=== PATIENT | male | born 1995 | race Caucasian/White ===

== ENCOUNTER 2023-09-19 08:18 | Inpatient (IN) | payer MEDICAID, SELFPAY ==
[2023-09-19 08:20] VITALS: BP 173/101; PULSE 119; RESP 16; TEMP 36.3; O2SAT 100; BMI 25.7
--- NOTE | 2023-09-19 08:31 | EX.ED.SAOD ---
HPI History of Present Illness Chief Complaint: Substance Abuse Informant: patient Onset/Context/Timing Onset: Yesterday Context: Gradual Onset Timing: Continuous Quality: Shaky Location: Generalized Worsened by: Nothing Relieved by: Nothing Associated Symptoms Associated Symptoms: Negative for vomiting*, diarrhea*, fever*, rash*, seizure, tremor, palpatations, change in mental status, trauma, suicidal ideation or homicidal ideation Narrative Narrative: Patient presents requesting detox from alcohol. Patient states he drinks 1 pint of hard liquor or 8-12 beers per day. Patient states his last drink was yesterday afternoon. Patient states he is starting to feel somewhat shaky but denies any seizures or tremors. Patient states he feels like his heart is beating little faster than normal but denies any palpitations. Patient states he has had some loose stools but denies any diarrhea. Patient denies any nausea or vomiting. Patient denies any fevers or chills. Patient denies any suicidal or homicidal ideations. Patient states he was in a detox program at [facility] in [place] approximately 9 months ago. [facility] Medical History (Updated 09/19/23 @ 09:[address] Hi Stuart DO) Depression Home Medications multivitamin with minerals-folic acid 120 mcg chewable tablet (Adult Multivitamin Gummies) tab PO DAILY 09/19/23 [History Last Taken Unknown] paroxetine HCl 30 mg tablet 30 mg PO DAILY 09/19/23 [History Last Taken 09/18/23] Allergy/AdvReac Type Severity Reaction Status Date / Time hazelnut Allergy Mild Itching Verified 09/19/23 08:22 Surgical History no surgical history no surgical history Social History Smoking Status: Current every day smoker tobacco type: cigarettes ROS ROS ED Constitutional Constitutional ED: Denies chills or fever(s) Eyes Eyes: Denies blurry vision or change in vision ENT ENT ED: Reports rhinorrhea; Denies sore throat Cardiovascular Cardiovascular: Denies chest pain or palpitations Respiratory/Chest Respiratory/Chest: Denies cough or dyspnea Gastrointestinal Gastrointestinal: Denies nausea or vomiting Genitourinary Genitourinary ED: Denies dysuria or hematuria Musculoskeletal Musculoskeletal: Denies back pain or neck pain Integumentary Denies abscess or rash Neurologic Neurologic: Denies headache(s) or weakness Allergic/Immunologic Allergic/Immunologic ED: Denies mouth swelling or urticaria EXAM Physical Exam Const Vital Signs: 09/19/23 08:20 Temperature 97.3 F L Temperature Source Temporal Pulse Rate 119 H Respiratory Rate 16 Blood Pressure 173/101 H Blood Pressure Mean 125 Pulse Ox 100 Oxygen Delivery Method Room Air Positive well nourished and well developed General Appearance ED: well developed and NAD HEENT Reports moist mucous membranes Neck supple and no JVD Chest Wall inspection of chest normal and palpation of chest normal Resp normal respiratory effort and clear to auscultation bilaterally Cardio regular rhythm Rate: tachycardic GI soft to palpation, non-tender and non-distended Neuro oriented x3, CN's II-XII intact bilaterally and no sensory deficits noted Eduarda Coma Scale: document GCS findings Spontaneous Obeys Commands Oriented 15 Sensorium / Orientation: alert Speech: speech normal Motor Exam: strength 5/5 throughout Psych mental status grossly normal and thought process normal MDM MDM MDM Narrative Medical decision making narrative: Medical screening labs will be obtained. CBC will be obtained to assess for leukocytosis and anemia. Comprehensive metabolic profile will be obtained to assess for hepatic function, renal function, and electrolyte abnormality. Lipase will be obtained to assess for pancreatitis. Urinalysis will be obtained to assess for urinary tract infection. Serum alcohol level will be obtained to assess for alcohol intoxication. Urine tox screen will be obtained to assess for substance abuse. Lab Data Lab results narrative: CBC was reviewed and was within normal limits. Comprehensive metabolic profile was reviewed and was within normal limits. Lipase was reviewed and was normal at 55. Urinalysis was reviewed. There is no evidence of urinary tract infection or hematuria. Labs: Laboratory Results - last 24 hr 09/19/23 09/19/23 08:42 08:55 WBC 10.0 RBC 5.03 Hgb 15.3 Hct 43.7 MCV 86.9 MCH 30.4 MCHC 35.0 RDW Std Deviation 41.8 RDW Coeff of Barbara 13.2 Plt Count 344 MPV 9.5 Immature Gran % (Auto) 0.300 Neut % (Auto) 50.9 Lymph % (Auto) 36.4 [place] % (Auto) 9.5 Eos % (Auto) 2.2 Baso % (Auto) 0.7 Absolute Neuts (auto) 5.1 Absolute Lymphs (auto) 3.64 Nucleated RBC % 0 Sodium 138 Potassium 3.4 L Chloride 105 Carbon Dioxide 27.0 Anion Gap 6 BUN 13 Creatinine 1.14 Estim Creat Clear Calc 95.61 Est GFR (MDRD) Af Amer 97 Est GFR (MDRD) Non-Af 81 BUN/Creatinine Ratio 11.4 Glucose 100 Calcium 9.5 Total Bilirubin 0.60 AST 13 L ALT 23 Alkaline Phosphatase 105 Total Protein 8.4 H Albumin 4.2 Globulin 4.2 Albumin/Globulin Ratio 1.0 Lipase 55 Urine Color Yellow Urine Clarity Clear Urine pH 8.0 Ur Specific [place] 1.010 Urine Protein Negative Urine Glucose (UA) Normal Urine Ketones Negative Urine Occult Blood 10 H Urine Nitrite Negative Urine Bilirubin Negative Urine Urobilinogen Normal Ur Leukocyte Esterase Negative Urine RBC 0-5 SEEN Urine WBC 0 SEEN Ur Squamous Epith Cells 0-5 SEEN Urine Bacteria 0 SEEN Urine Mucus 0 SEEN Ur Drug Screen Comment Management Discussion w/another healthcare provider: Hospitalist Treatment and Re-Evaluation Narrative: Patient was given IV fluids. Patient was given a dose of phenobarbital here. Case will be discussed with the hospitalist for admission. He will admit the patient to his service. Patient understood and was agreeable with the plan. All questions were answered. Discharge Plan Triage Chief Complaint: Substance Abuse ED Provider: Hi Stuart Dx/Rx/DC Orders Clinical Impression: Alcohol dependence, Alcohol withdrawal Prescriptions: No Action paroxetine HCl 30 mg tablet 30 mg PO DAILY Patient Comments: TAKE 1 TABLET BY MOUTH EVERY DAY multivit with min-folic acid [Adult Multivitamin Gummies] 120 mcg tablet,chewable PO DAILY Primary Care Provider: Michelle Carias Referrals: Michelle Carias MD [Primary Care Provider] - Disposition Disposition: Acute Care Hospital [facility]
[2023-09-19 08:51] LABS: Absolute Lymphocyte Count 3.64 X10^3/uL (0.83-4.51); Absolute Neutrophil Count 5.1 X10^3/uL (2.0-7.7); Basophil# 0.07 X10^3/uL; Basophil% 0.7 % (0-1); Eosinophil# 0.22 X10^3/uL; Eosinophils% 2.2 % (0-5); Hematocrit 43.7 % (40-54); Hemoglobin 15.3 g/dL (13.0-16.5); Lymphocyte # 3.64 X10^3/ul (0.83-4.51); Lymphocyte % 36.4 % (19-41); Mean Corpuscular Hgb 30.4 pg (27.0-32.0); Mean Corpuscular Volume 86.9 fL (80-94); Mean Platelet Vol. 9.5 fl (6.2-12.0); Monocyte# 0.95 X10^3/uL; Monocyte% 9.5 % (0-10); NRBC Flagged by Analyzer 0 % (0-5); Neutrophil # 5.08 X10^3/uL (2.7-7.7); Neutrophil % 50.9 % (47-70); Platelet Count 344 K/mm3 (150-450); RBC Distribution Width CV 13.2 % (11.6-14.6); RBC Distribution Width SD 41.8 fl (35.1-43.9); Red Blood Count 5.03 M/mm3 (4.6-6.2)
[2023-09-19] MEDS: 0.9% Normal Saline (1000mL) 1,000 ML 1000 ML IV (08:57)
[2023-09-19 09:05] LABS: Bacteria 0 SEEN /hpf (None Seen); Mucous, Urine 0 SEEN /hpf (<or=2+); White Blood Cells 0 SEEN /hpf (0-5)
[2023-09-19 09:08] LABS: Color, Urine Yellow (Yellow); Glucose, Dipstick Normal (Normal); Ketone-Dipstick Negative (Negative); Leukocyte Esterase-Dipstick Negative /ul (Negative); Nitrite-Dipstick Negative (Negative); Occult Blood-Urine 10 /ul (Negative); Protein-Dipstick Negative (Negative); Urine Bilirubin Dipstick Negative (Negative); Urine Clarity Clear (Clear); Urine Urobilinogen Normal (Normal)
[2023-09-19 09:13] LABS: AST(SGOT) 13 U/L (15-37); Alanine Aminotransfer ALT/SGPT 23 U/L (16-61); Albumin, Serum 4.2 g/dL (3.2-5.0); Alkaline Phosphatase 105 U/L (45-117); Anion Gap 6 (5-15); BUN 13 mg/dL (7-18); BUN/Creat Ratio 11.4 RATIO (10-20); Calcium,Total 9.5 mg/dL (8.5-10.1); Chloride 105 mmol/L (98-107); Creatinine, Serum 1.14 mg/dL (0.70-1.30); EST Glomerular Filtration Rate 81 mL/min (>60); Est Glom Filt Rate - Afr Amer 97 mL/min (>60); Estimated Creatinine Clearance 95.61 ml/min; Globulin 4.2 g/dL (2.2-4.2); Glucose 100 mg/dL (74-106); Lipase 55 U/L (13-75); Potassium 3.4 mmol/L (3.5-5.1); Protein, Total 8.4 g/dL (6.4-8.2); Sodium Level 138 mmol/L (136-145)
[2023-09-19 09:17] LABS: Red Blood Cells-Urine 0-5 SEEN /hpf (0-5); Squamous Epithelial Cells - UA 0-5 SEEN /hpf (0-5)
[2023-09-19 09:20] VITALS: BP 126/78; PULSE 99; RESP 14; TEMP 36.4; O2SAT 99
--- NOTE | 2023-09-19 09:21 | PCM.HP.STD ---
HPI - General General Date of Admission: 09/19/23 Date of Service: 09/19/23 Chief Complaint: Tremulous HPI Narrative MARY MEDINA, is a 28 M who presents who presents with tremulousness. Patient admitted to daily use of alcohol. His last drink was a day prior to coming in. He presented to the emergency department expressing the desire to undergo medical stabilization. An assessment of acute alcohol withdrawal was made patient admitted to regular nursing floor for subsequent manage [facility] Medical History (Updated 09/19/23 @ 10:27 by Adrian Guillen) Alcohol abuse Anxiety Depression Substance abuse Home Medications multivitamin with minerals-folic acid 120 mcg chewable tablet (Adult Multivitamin Gummies) 1 tab PO DAILY HEALTH MAINTENANCE 09/19/23 [History Last Taken Unknown] paroxetine HCl 30 mg tablet 30 mg PO DAILY DEPRESSION 09/19/23 [History Last Taken 09/18/23] Allergy/AdvReac Type Severity Reaction Status Date / Time hazelnut Allergy Mild Itching Verified 09/19/23 08:22 Surgical History no surgical history Social History Smoking Status: Current every day smoker tobacco type: cigarettes and e-cigarettes ROS ROS Narrative GENERAL: denies fever, chills, night sweats, weight loss, anorexia HEENT: denies headache, sinus congestion, or drainage, dysphagia RESPIRATORY: denies cough, sputum production, shortness of breath, CARDIAC: denies chest pain, palpitations, orthopnea, PND GASTROINTESTINAL: denies abdominal pain, nausea, vomiting, melena, GENITOURINARY: denies dysuria, urgency, frequency, heamaturia EXTREMITY: denies swelling MUSCULOSKELETAL: denies current joint pain or tenderness NEUROLOGIC: denies focal numbness, weakness, tingling HEMATOLOGIC: denies easy bruising and/or hemorrhage INTEGUMENT: denies rashes PSYCHIATRIC: denies suicidal or homicidal ideation Vital Signs Vital Signs Vital Signs: 09/19/23 08:20 Temperature 97.3 F L Temperature Source Temporal Pulse Rate 119 H Respiratory Rate 16 Blood Pressure 173/101 H Blood Pressure Mean 125 Pulse Ox 100 Oxygen Delivery Method Room Air Weight Weight: 78.925 kg Body Mass Index (BMI) 25.7 Physical Exam Narrative GENERAL: cooperative but tremulous at rest HEENT: Atraumatic; normocephalic EYES; Anicteric, Normal Conjunctiva NECK; supple, normal thyroid, RESPIRATORY: Diminished to auscultation CARDIOVASCULAR: Regular S1 S2, GI: soft, normoactive bowel sounds, : No Renal angle tenderness; EXTREMITIES: No edema, no clubbing, MUSCULOSKELETAL: no muscle wasting NEURO: Awake; no lateralizing signs. SKIN: No Rash PSYCH; Flat affect Results Lab / Micro Data 09/19/23 08:42 09/19/23 08:42 Labs: Laboratory Results - last 24 hr 09/19/23 08:42: WBC 10.0, RBC 5.03, Hgb 15.3, Hct 43.7, MCV 86.9, MCH 30.4, MCHC 35.0, RDW Std Deviation 41.8, RDW Coeff of Barbara 13.2, Plt Count 344, MPV 9.5, Immature Gran % (Auto) 0.300, Neut % (Auto) 50.9, Lymph % (Auto) 36.4, [place] % (Auto) 9.5, Eos % (Auto) 2.2, Baso % (Auto) 0.7, Absolute Neuts (auto) 5.1, Absolute Lymphs (auto) 3.64, Nucleated RBC % 0, Sodium 138, Potassium 3.4 L, Chloride 105, Carbon Dioxide 27.0, Anion Gap 6, BUN 13, Creatinine 1.14, Estim Creat Clear Calc 95.61, Est GFR (MDRD) Af Amer 97, Est GFR (MDRD) Non-Af 81, BUN/Creatinine Ratio 11.4, Glucose 100, Calcium 9.5, Total Bilirubin 0.60, AST 13 L, ALT 23, Alkaline Phosphatase 105, Total Protein 8.4 H, Albumin 4.2, Globulin 4.2, Albumin/Globulin Ratio 1.0, Lipase 55 09/19/23 08:55: Urine Color Yellow, Urine Clarity Clear, Urine pH 8.0, Ur Specific [place] 1.010, Urine Protein Negative, Urine Glucose (UA) Normal, Urine Ketones Negative, Urine Occult Blood 10 H, Urine Nitrite Negative, Urine Bilirubin Negative, Urine Urobilinogen Normal, Ur Leukocyte Esterase Negative, Urine RBC 0-5 SEEN, Urine WBC 0 SEEN, Ur Squamous Epith Cells 0-5 SEEN, Urine Bacteria 0 SEEN, Urine Mucus 0 SEEN, Ur Drug Screen Comment Assessment & Plan Assessment/Plan (1) Alcohol withdrawal: PLAN: Plan Patient is a 28-year-old gentleman with history of chronic alcohol dependence presented with acute alcohol withdrawal 1. Acute alcohol withdrawal -patient has been admitted to regular nursing floor for medical stabilization using phenobarb taper in addition to adjuvant treatment for his symptoms 2. Chronic alcohol dependence counseled on cessation 3. Depression ? Patient is on SSRI with Paxil did continue 4. Tobacco dependence - Counseled on cessation, offered nicotine patch for tobacco cravings 5. DVT prophylaxis ? Low risk with encouraging ambulation Time spent in the patient's overall evaluation,decision-making process, review of diagnostic data, adjustment of management, discussion with other providers, nursing nursing and ancillary staff involved in patient's care documentation, 55 Minutes Charges/Coding Visit Charges Inpatient E&M: 94066 Init Hosp L2
[2023-09-19] MEDS: Phenobarbital 32.4 MG Tablet 64.7999999999999972 MG PO ×5 (09:26→23:17)
[2023-09-19 09:28] LABS: Amphetamine Urine VISTA NEGATIVE (<1000 ng/mL); Barbiturate Urine VISTA NEGATIVE (< 200 ng/mL); Benzodiazepine Urine VISTA NEGATIVE (< 200 ng/mL); Cocaine Urine VISTA NEGATIVE (< 300 ng/mL); Ecstacy Urine VISTA NEGATIVE (< 500 ng/mL); Methadone Urine VISTA NEGATIVE (< 300 ng/mL); PCP Urine VISTA NEGATIVE (< 25 ng/mL); THC Urine VISTA POSITIVE (< 50 ng/mL); Vista UDS pH Range 8
[2023-09-19 09:33] LABS: Alcohol, Blood (Medical)-Serum < 3.0 mg/dL
[2023-09-19 10:19] VITALS: BMI 25.5
[2023-09-19 10:30] VITALS: BP 137/98; PULSE 85; RESP 16; TEMP 36.4; O2SAT 98
[2023-09-19] MEDS: Lactated Ringers 1,000 ML 125 ML IV (11:15)
[2023-09-19] MEDS: hydrOXYzine PAM 25 MG Capsule 50 MG PO ×2 (11:15→23:17)
[2023-09-19] MEDS: 0.9% Saline Lock 10 ML Syringe IV (11:15)
[2023-09-19] MEDS: PARoxetine 10 MG Tablet 30 MG PO (11:15)
--- NOTE | 2023-09-19 12:22 | ADDICTION ---
This commercial real estate underwriter met with PT to conduct ASAM, MSE, AUDIT assessments and to plan for d/c. PT A+Ox4 and participated actively. All assessments completed and placed in PT's chart. PT plans to f/u with inpatient residential treatment. TW is currently looking for placement. PT did not indicate a need for transportation post d/c from [facility].
[2023-09-19 14:00] VITALS: BP 125/76; PULSE 89; RESP 16; O2SAT 96
--- NOTE | 2023-09-19 14:39 | CHAPLAIN ---
Type of Pastoral Visit _x__ Initial Visit ___ Follow-up Visit ___ On-call Visit ___ General Patient Visit ___ Spiritual Assessment ___ Family Conference ___ Bereavement ___ Rapid Response ___ Code Blue ___ Other (describe below) Pastoral Care Referral From _x__ Patient ___ Family ___ Nurse ___ Physician ___ Flat Surfacer Jewel ___ Overlock Sleeve Setter ___ Other (describe below) Sacrament/Intervention _x__ Active listening ___ Anointing ___ Quaker ___ Bereavement ___ Communion ___ Diana exploration ___ _x__ Life review _x__ Prayer ___ Reconciliation ___ Sacrament of Sick _x__ Supportive presence ___ Wedding ___ Other (describe below) Pastoral Comments patient is awake and sits up in bed to talk; pt has been met before by this tube blower; pt is offered support and someone to talk with or sit with; pt states that he is not much for conversation and welcomes this tube blower to stay in room and take time with him; pt is able to answer many questions about his life, addiction to alcohol, and needed help; pt admits that he is not much for conversation but is polite and welcomes presence and time given; pt is able to state what he believes he needs going forward for overcoming addiction and living a more productive life; affirmation and offer of future support given
[2023-09-19] MEDS: Nicotine Polacrilex 2 MG GUM PO (15:21)
[2023-09-19 23:15] VITALS: BP 121/78; PULSE 93; RESP 16; TEMP 36.8; O2SAT 99
[2023-09-20 02:50] VITALS: BP 133/89; PULSE 73; RESP 16; TEMP 36.6; O2SAT 98
[2023-09-20] MEDS: Phenobarbital 32.4 MG Tablet 64.7999999999999972 MG PO ×6 (02:50→21:37)
[2023-09-20] MEDS: Hydrocortisone 2.5% Crm 1 APPLIC TOPICAL ×2 (03:01→13:13)
[2023-09-20] MEDS: hydrOXYzine PAM 25 MG Capsule 50 MG PO (06:30)
[2023-09-20 07:52] VITALS: BP 121/83; PULSE 68; RESP 18; TEMP 36.6; O2SAT 100
[2023-09-20] MEDS: Thiamine Hydrochloride 100 MG Tablet PO (07:55)
[2023-09-20] MEDS: Folic Acid 1 MG Tablet PO (07:55)
--- NOTE | 2023-09-20 08:05 | PCM.PN.HOSP ---
Reason for Visit Reason for Visit: Diagnoses Alcohol use, unspecified with withdrawal, unspecified (09/19/23) Subjective Subjective Patient is a 28-year-old gentleman admitted with acute alcohol withdrawal admitted to regular nursing floor where patient is currently being managed Objective Data Objective Data Vital Signs: Vital Signs Temp Pulse Resp BP Pulse Ox O2 Del Method 97.8 F 68 18 121/83 H 100 Room Air 09/20/23 07:52 09/20/23 07:52 09/20/23 07:52 09/20/23 07:52 09/20/23 07:52 09/20/23 07:52 Oxygen Delivery Method Room Air Weight: 78.471 kg Body Mass Index (BMI) 25.5 Intake & Output: Intake and Output for Last 24 Hours 09/18/23 09/19/23 09/20/23 23:59 23:59 23:59 Intake Total 2860.42 / 2860.42 Balance 2860.42 / 2860.42 Lab / Micro Data 09/19/23 08:42 09/19/23 08:42 Labs: Laboratory Results - last 24 hr 09/19/23 08:42: WBC 10.0, RBC 5.03, Hgb 15.3, Hct 43.7, MCV 86.9, MCH 30.4, MCHC 35.0, RDW Std Deviation 41.8, RDW Coeff of Barbara 13.2, Plt Count 344, MPV 9.5, Immature Gran % (Auto) 0.300, Neut % (Auto) 50.9, Lymph % (Auto) 36.4, [place] % (Auto) 9.5, Eos % (Auto) 2.2, Baso % (Auto) 0.7, Absolute Neuts (auto) 5.1, Absolute Lymphs (auto) 3.64, Nucleated RBC % 0, Sodium 138, Potassium 3.4 L, Chloride 105, Carbon Dioxide 27.0, Anion Gap 6, BUN 13, Creatinine 1.14, Estim Creat Clear Calc 95.61, Est GFR (MDRD) Af Amer 97, Est GFR (MDRD) Non-Af 81, BUN/Creatinine Ratio 11.4, Glucose 100, Calcium 9.5, Total Bilirubin 0.60, AST 13 L, ALT 23, Alkaline Phosphatase 105, Total Protein 8.4 H, Albumin 4.2, Globulin 4.2, Albumin/Globulin Ratio 1.0, Lipase 55, Ethyl Alcohol < 3.0 09/19/23 08:55: Urine Color Yellow, Urine Clarity Clear, Urine pH 8.0, Ur Specific [place] 1.010, Urine Protein Negative, Urine Glucose (UA) Normal, Urine Ketones Negative, Urine Occult Blood 10 H, Urine Nitrite Negative, Urine Bilirubin Negative, Urine Urobilinogen Normal, Ur Leukocyte Esterase Negative, Urine RBC 0-5 SEEN, Urine WBC 0 SEEN, Ur Squamous Epith Cells 0-5 SEEN, Urine Bacteria 0 SEEN, Urine Mucus 0 SEEN, Urine Opiates Screen NEGATIVE, Urine Methadone Screen NEGATIVE, Ur Barbiturates Screen NEGATIVE, Ur Phencyclidine Scrn NEGATIVE, Ur Amphetamines Screen NEGATIVE, MDMA (Ecstasy) Screen NEGATIVE, U Benzodiazepines Scrn NEGATIVE, Urine Cocaine Screen NEGATIVE, U Cannabinoids Screen POSITIVE H, Ur Drug Screen Comment Physical Exam Narrative GENERAL: cooperative but tremulous at rest HEENT: Atraumatic; normocephalic EYES; Anicteric, Normal Conjunctiva NECK; supple, normal thyroid, RESPIRATORY: Diminished to auscultation CARDIOVASCULAR: Regular S1 S2, GI: soft, normoactive bowel sounds, : No Renal angle tenderness; EXTREMITIES: No edema, no clubbing, MUSCULOSKELETAL: no muscle wasting NEURO: Awake; no lateralizing signs. SKIN: No Rash PSYCH; Flat affect Assessment & Plan Assessment/Plan (1) Alcohol withdrawal: PLAN: Plan Patient is a 28-year-old gentleman with history of chronic alcohol dependence presented with acute alcohol withdrawal 1. Acute alcohol withdrawal -patient has been admitted to regular nursing floor for medical stabilization using phenobarb taper in addition to adjuvant treatment for his symptoms ? 09/20/2023; patient has tolerated the phenobarb taper well so 2. Chronic alcohol dependence ? Counseled on cessation 3. Depression ? Patient is on SSRI with Paxil did continue 4. Tobacco dependence - Counseled on cessation, offered nicotine patch for tobacco cravings 5. DVT prophylaxis ? Low risk with encouraging ambulation Time spent in the patient's overall evaluation,decision-making process, review of diagnostic data, adjustment of management, discussion with other providers, nursing nursing and ancillary staff involved in patient's care documentation, 35 Minutes Charges/Coding Visit Charges Inpatient E&M: 60872 Subs Hosp L2
[2023-09-20] MEDS: PARoxetine 10 MG Tablet 30 MG PO (10:07)
[2023-09-20] MEDS: Nicotine Polacrilex 2 MG GUM PO ×2 (10:08→13:13)
[2023-09-20] MEDS: Influenza Virus Vac Quad 23-24 60 MCG/0.5 ML SYRINGE IM (10:08)
[2023-09-20 12:07] VITALS: BP 138/86; PULSE 77; RESP 18; TEMP 37.1; O2SAT 98
[2023-09-20 16:42] VITALS: BP 127/86; PULSE 60; RESP 18; TEMP 37; O2SAT 100
[2023-09-20 21:47] VITALS: BP 118/77; PULSE 81; RESP 16; TEMP 36.9; O2SAT 96
[2023-09-21] MEDS: Phenobarbital 32.4 MG Tablet 64.7999999999999972 MG PO ×2 (02:44→06:35)
[2023-09-21 03:08] VITALS: BP 114/78; PULSE 68; RESP 16; TEMP 36.6; O2SAT 99
[2023-09-21 07:54] VITALS: BP 131/83; PULSE 78; RESP 18; TEMP 36.6; O2SAT 98
[2023-09-21] MEDS: Folic Acid 1 MG Tablet PO (07:54)
[2023-09-21] MEDS: Thiamine Hydrochloride 100 MG Tablet PO (07:55)
--- NOTE | 2023-09-21 08:48 | PN.HOSP_ITS ---
Reason for Visit Reason for Visit: Diagnoses Alcohol use, unspecified with withdrawal, unspecified (09/19/23) Subjective Subjective Patient seen had a relatively uneventful night. Symptoms appear well- controlled. Plan for patient to be transferred to residential facility on discharge. Do anticipate discharge on 09/22/2023 Objective Data Objective Data Vital Signs: Vital Signs Temp Pulse Resp BP Pulse Ox O2 Del Method 97.8 F 78 18 131/83 H 98 Room Air 09/21/23 07:54 09/21/23 07:54 09/21/23 07:54 09/21/23 07:54 09/21/23 07:54 09/21/23 07:54 Oxygen Delivery Method Room Air Weight: 78.471 kg Body Mass Index (BMI) 25.5 Intake & Output: Intake and Output for Last 24 Hours 09/19/23 09/20/23 09/21/23 23:59 23:59 23:59 Intake Total 2860.42 / 2860.42 Balance 2860.42 / 2860.42 Lab / Micro Data 09/19/23 08:42 09/19/23 08:42 Physical Exam Narrative GENERAL: cooperative but tremulous at rest HEENT: Atraumatic; normocephalic EYES; Anicteric, Normal Conjunctiva NECK; supple, normal thyroid, RESPIRATORY: Diminished to auscultation CARDIOVASCULAR: Regular S1 S2, GI: soft, normoactive bowel sounds, : No Renal angle tenderness; EXTREMITIES: No edema, no clubbing, MUSCULOSKELETAL: no muscle wasting NEURO: Awake; no lateralizing signs. SKIN: No Rash PSYCH; Flat affect Assessment & Plan Assessment/Plan (1) Alcohol withdrawal: PLAN: Plan Patient is a 28-year-old gentleman with history of chronic alcohol dependence presented with acute alcohol withdrawal 1. Acute alcohol withdrawal -patient has been admitted to regular nursing floor for medical stabilization using phenobarb taper in addition to adjuvant treatment for his symptoms ? 09/20/2023; patient has tolerated the phenobarb taper well so ? 09/21/2023;Patient seen had a relatively uneventful night. Symptoms appear well-controlled. Plan for patient to be transferred to residential facility on discharge. Do anticipate discharge on 09/22/2023 2. Chronic alcohol dependence ? Counseled on cessation 3. Depression ? Patient is on SSRI with Paxil did continue 4. Tobacco dependence - Counseled on cessation, offered nicotine patch for tobacco cravings 5. DVT prophylaxis ? Low risk with encouraging ambulation Time spent in the patient's overall evaluation,decision-making process, review of diagnostic data, adjustment of management, discussion with other providers, nursing nursing and ancillary staff involved in patient's care documentation, 35 Minutes Charges/Coding Visit Charges Inpatient E&M: 91727 Subs Hosp L2
--- NOTE | 2023-09-21 08:59 | PCM.DC.SUM ---
Providers Date of Admission: 09/19/23 Date of Discharge: 09/21/23 Primary Care Physician: Dr. Michelle Carias MD Reason For Visit: ALCOHOL WITHDRAWAL Diagnosis Discharge Diagnosis (1) Alcohol withdrawal: Status: Acute Code(s): F10.939 - Alcohol use, unspecified with withdrawal, unspecified Plan Patient is a 28-year-old gentleman with history of chronic alcohol dependence presented with acute alcohol withdrawal 1. Acute alcohol withdrawal -patient has been admitted to regular nursing floor for medical stabilization using phenobarb taper in addition to adjuvant treatment for his symptoms ? 09/20/2023; patient has tolerated the phenobarb taper well so ? 09/21/2023;Patient seen had a relatively uneventful night. Symptoms appear well-controlled. Plan for patient to be transferred to residential facility on discharge. 2. Chronic alcohol dependence ? Counseled on cessation 3. Depression ? Patient is on SSRI with Paxil did continue 4. Tobacco dependence - Counseled on cessation, offered nicotine patch for tobacco cravings 5. DVT prophylaxis ? Low risk with encouraging ambulation Time spent in the patient's overall evaluation,decision-making process, review of diagnostic data, adjustment of management, discussion with other providers, nursing nursing and ancillary staff involved in patient's care documentation, 35 Minutes Medications at Discharge Home Medications multivitamin with minerals-folic acid 120 mcg chewable tablet (Adult Multivitamin Gummies) 1 tab PO DAILY HEALTH MAINTENANCE 09/19/23 paroxetine HCl 30 mg tablet 30 mg PO DAILY DEPRESSION 09/19/23 Hospital Course Summary of Care Provided Minutes Spent on Discharge: 35 Physical Exam Narrative GENERAL: cooperative HEENT: Atraumatic; normocephalic EYES; Anicteric, Normal Conjunctiva NECK; supple, normal thyroid, RESPIRATORY: Diminished to auscultation CARDIOVASCULAR: Regular S1 S2, GI: soft, normoactive bowel sounds, : No Renal angle tenderness; EXTREMITIES: No edema, no clubbing, MUSCULOSKELETAL: no muscle wasting NEURO: Awake; no lateralizing signs. SKIN: No Rash PSYCH; Flat affect Weight / BMI Weight Weight: 78.471 kg Body Mass Index (BMI) 25.5 ABG / Lab / Microbiology Data 09/19/23 08:42 09/19/23 08:42 D/C Instructions Discharge Diet: No restrictions Discharge Activity: Return to Normal Activity Call your doctor if you observe: Fever of 101 or Higher, Shortness of breath, Fainting spells and Chest pain Meaningful Use Info Meaningful Use Diagnoses (Choose all that apply): None applicable Discharge Plan Admission Admit Date/Time: 09/19/23 09:18 Attending Provider: Lamberto March Primary Care Provider: Michelle Carias Discharge Orders/Prescriptions Prescriptions: Continued paroxetine HCl 30 mg tablet 30 mg PO DAILY multivit with min-folic acid [Adult Multivitamin Gummies] 120 mcg tablet,chewable 1 tab PO DAILY Referrals / Follow Up: Michelle Carias MD [Primary Care Provider] - Disposition Disposition (needs filled in before D/C Order can be placed): Inpatient Rehab Unit/Facility Charges/Coding Visit Charges Inpatient E&M: 40285 Disch Hosp >30min
[2023-09-21] MEDS: PARoxetine 10 MG Tablet 30 MG PO (10:01)
--- NOTE | 2023-09-21 10:55 | PHA.DC.MR.R ---
Pharmacy [place] Med Reconciliation Pharmacy Service has performed discharge medication reconciliation for this patient. The patient's discharge medication list was reviewed for discrepancies and discrepancies were resolved. Medications at Discharge Home Medications multivitamin with minerals-folic acid 120 mcg chewable tablet (Adult Multivitamin Gummies) 1 tab PO DAILY HEALTH MAINTENANCE 09/19/23 paroxetine HCl 30 mg tablet 30 mg PO DAILY DEPRESSION 09/19/23
[2023-09-21 11:21] VITALS: BP 135/81; PULSE 96; RESP 18; TEMP 36.8; O2SAT 97
== END 2023-09-21 11:57 | DRG 775 ==
LOC: ED 09:19 → MS3 09:45
PROVIDERS: Admitting Provider Internal Medicine; Emergency Provider Emergency Medicine; PCP Internal Medicine; Visit Provider Internal Medicine
DX: F10.239 Alcohol dependence with withdrawal, unspecified (principal); F17.210 Nicotine dependence, cigarettes, uncomplicated; F32.A Depression, unspecified; F41.9 Anxiety disorder, unspecified; F17.290 Nicotine dependence, other tobacco product, uncomplicated; Z79.899 Other long term (current) drug therapy; Y90.0 Blood alcohol level of less than 20 mg/100 ml
CPT/HCPCS: 80053; 80307; 80320; 81001; 83690; 85025; 99284; J7030; J7120; 90686; A4216; G0480

== ENCOUNTER 2024-03-06 08:00 | Outpatient (RCR) | payer MEDICAID, SELFPAY ==
--- NOTE | 2024-03-06 10:10 | BH.SGPN.GN ---
Behaviors/Verbalizations/Mental Status: [] Eye contact is fair. Motor activity is appropriate. Appearance is casual. Speech is Appropriate. Mood is anxious. Affect is constricted. Thoughts are linear and logical. No evidence of psychosis. Client Response/Progress/Benefit: [] Pt an active participant in group discussions. Participated during interactive discussion on defining conflict (internal/external) and possible benefits to conflict. Attentive during psychoeducation on conflict styles (Avoidant, Accommodating, Competing, Cooperative) and engaged during interactive discussion in which peers identified the benefits and consequences to each conflict style. Pt identified their primary conflict style as avoidant. Stated negative consequence from avoidant is doesn't deal with the actual problem. Benefited from increased awareness of the impact of conflict styles in mental health. Will continue in IOP tx to prevent decompensation, decrease anxiety, and increase healthy coping skills.
--- NOTE | 2024-03-06 11:10 | BH.SGPN.GN ---
Behaviors/Verbalizations/Mental Status: [] Eye contact is fair. Motor activity is appropriate. Appearance is casual. Speech is Appropriate. Mood is anxious. Affect is congruent. Thoughts are linear and logical. No evidence of psychosis. Client Response/Progress/Benefit: [] Pt was an active participant in group discussions and activity. Engaged with peers in activity and identifying healthy ways to approach each conflict scenario. Group discussed various conflict resolution skills that can be useful in addressing conflict outside of IOP. Benefited from practicing and learning conflict resolution skills during group activity. Able to identify areas pt wants to work on to improve how pt manages conflict both internally and externally. Expressed wanting to work on using assertive communication when addressing external conflict. Will continue in IOP to increase use of healthy coping skills, challenge negative/distorted thoughts, and prevent decompensation.
--- NOTE | 2024-03-06 11:54 | BH.MDN ---
Multi-Disciplinary Note Note 60-min Individual: Time Started:: 09:00 Date: 03/06/24 Purpose of session/treatment goals addressed:: To gather information on pt's current stressors, symptoms, triggers, history, and tx goals. Another goal was to discuss the importance of maintaining sobriety throughout mental health tx. Eye Contact:: Good Motor Activity:: Appropriate Appearance:: Casual Speech:: Appropriate Mood:: Anxious and Depressed Affect:: Congruent Thoughts:: Linear, Logical and No evidence of hallucinations/delusions noted Staff Interventions:: motivational interviewing, CBT techniques, rapport building, strengths perspective, treatment planning, completed risk assessment / safety planning and goal setting Client Response:: Pt responded well to session, open to meeting with therapist. Pt reported that he self-referred to the IOP program due to sx of depression, irritability, and anxiety worsening to the point of an interrupted suicide attempt ~ 2 weeks ago. Disclosed a hx of polysubstance abuse and has recently been self-medicating with alcohol. Pt was intoxicated at the time of the interrupted attempt and became angry and irrational when his sister refused to take him to get more alcohol after pt consumed all he had in the house. Pt then threatened to harm himself with his father?s guns and the police were contacted. Denies any legal charges or hospitalization as a result. Denies any homicidal ideation at the time nor thoughts of harming anyone else. Reports his father removed all weapons from the home following the incident. Denies active suicidal ideation since but does endorse chronic passive thoughts of . Shared he has had passive suicidal ideation since age 15 which is when he also began self-medicating with alcohol, narcotics, meth and marijuana. Reports he has been sober from everything except alcohol and marijuana since 2020. Pt reports a desire to stop relying on alcohol and marijuana to cope and learn healthier alternatives for managing his emotions and stressors. Currently reports he drinks 2x/month and ?binges? 6-10 cans of malt liquor during those times. Marijuana use is several times a week. Pt was admitted to [facility] in September following detox at [facility]. Reports this was not as helpful as he had hoped. Additionally, began the substance use IOP program through [facility] in November of this year but discontinued treatment after 3 weeks. Endorses increased motivation to maintain sobriety now and is open to medication assistance for cravings. Receptive of psychoeducation on the importance of maintaining sobriety while in mental health treatment and the potential barriers to progress is unable to do so. Pt reports understanding. Discussed tx hx and background which is completed in detail in pt psychosocial assessment. Pt reports tx goals as improving mood stability and ability to manage his anger, as well as improving his sense of self-worth and motivation. Risks/Concerns:: Pt denies any active SI, plan, or intent. Denies access to lethal means. Reports willingness to maintain sobriety while in IOP tx. Progress Toward Goals/Plan:: Pt first arnold of IOP tx therefore limited progress to note. Pt endorses hopelessness and irritability that he would like to work on better managing. Pt shared that he has knowledge about coping skills from prior mental health and substance use treatment, but he struggles with applying the skills. Will continue IOP tx to prevent decompensation, improve distress tolerance, and promote mood stability. Time Stopped:: 09:55
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
--- NOTE | 2024-03-06 12:20 | BH.COMM ---
Communication Note Communication with Client Communication Note: Met with pt to complete initial paperwork and administer the C-SSRS screening and risk assessment since last visit. Per C-SSRS risk assessment, pt's risk is considered high due to recent interrupted suicide attempt via firearm while intoxicated. Pt was interrupted by police who were called by his sister. Pt no longer has access to fire arms or other lethal weapons as his father has removed all items from the home. Pt has hx of suicidal thoughts with ideas. Hx of one prior attempt via overdose on medication while intoxicated in 2021. This resulted in hospitalization at [facility]. Pt is open to sobriety and returning to . Pt currently denies active suicidal thoughts, plan, or intention to date. Pt feels able to maintain safety. Therapist provided counseling on access to lethal means. Pt has no access to weapons. Discussed case with Dr. Ruiz and pt will be admitted to [facility] tx with a diagnosis of Major Depressive Disorder, recurrent, severe w/out psychosis. (F33.2)
--- NOTE | 2024-03-07 11:15 | BH.SGPN.GN ---
Behaviors/Verbalizations/Mental Status: [] Eye contact is good. Motor activity is appropriate. Appearance is casual. Speech is Appropriate. Mood is depressed. Affect is flat. Thoughts are linear and logical. No evidence of psychosis. Client Response/Progress/Benefit: [] Pt responded well to session AEB listening attentively to peers, providing some input, as well as taking notes throughout. Pt contributed throughout psychoeducation on different boundary setting styles. Participated in group discussion brainstorming various strategies for improving healthy boundary settings. Pt reported wanting to work on continuing to come to IOP as this is vulnerable for pt. ?Seemed to benefit from increased awareness of how different boundary styles can impact mental health. Will continue IOP tx to prevent use of unhealthy coping skills, increase support, and prevent decompensation. Narrative Note: []
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
--- NOTE | 2024-03-07 12:27 | BH.DR.ITP ---
Initial Treatment Plan Patient Information Visit Information: ADMISSION DATE: EXPECTED LOS: 4-6 weeks Problems/Symptoms Problem #1:: Depression Symptom:: Sadness, hopelessness, irritability, low energy, decreased concentration, guilt, passive thoughts of , chronic suicidal ideation Problem #2:: Anxiety Symptom:: Worry, rumination, panic attacks, hypervigilance, avoidance
--- NOTE | 2024-03-09 09:05 | BH.SGPN.GN ---
Behaviors/Verbalizations/Mental Status: [] Pt alert and oriented, neatly dressed and groomed. Eye contact fair. Motor activity appropriate. Speech within normal limits. Affect flat. mood depressed. Thoughts linear, logical, no signs of hallucinations or delusions. Reviewed pt?s symptom tracker, no risk for suicidal ideation, plan, or intent 03/09/24 Client Response/Progress/Benefit: []Pt responded well to session, attentive and engaged. Pt reports feeling unsure, I can't pin down my emotion today. Pt acknowledged that coming to IOP has been helpful, but it also takes a toll on his energy. Pt stated wins today as completing his first week, getting on new medications, and not drinking all week. Pt's stressor is sticking with all of this. Pt appeared to benefit from reflecting on application of coping skills and connecting with peers. Pt will continue IOP tx to prevent decompensation, improve daily functioning, and increase distress tolerance skills. Narrative Note: []
--- NOTE | 2024-03-09 10:15 | BH.SGPN.GN ---
Behaviors/Verbalizations/Mental Status: [] Eye contact is good. Motor activity is appropriate. Appearance is casual. Speech is Appropriate. Mood is depressed. Affect is congruent. Thoughts are linear and logical. No evidence of psychosis. Client Response/Progress/Benefit: [] Attentive and engaged throughout the group discussions. Attentive during psychoeducation on the 4 communication styles (Passive, Passive-Aggressive, Aggressive, and Assertive) and the obstacles to effective communication. Attentive during interactive discussion on the benefits of communicating effectively, as well as the benefits and disadvantages to the different communication styles. Reports connecting most with passive and assertive styles. Benefited from increased understanding of communication styles and how these can impact effective communication. Will continue in IOP to prevent decompensation, increase healthy coping, and improve functioning. Narrative Note: []
--- NOTE | 2024-03-09 11:15 | BH.SGPN.GN ---
Behaviors/Verbalizations/Mental Status: []Pt alert and oriented, casually dressed. Eye contact good. Motor activity appropriate. Speech within normal limits. Affect congruent, mood depressed and anxious. Thoughts linear, logical, no signs of hallucinations or delusions. Client Response/Progress/Benefit: [] Pt responded well to session AEB Pt listening attentively to others and providing input during group discussion on the pay offs and costs of the different communication styles. Pt able to connect how current communication style impacts mental health. Connected with peers? comments about importance of using assertive communication. Pt did well being assertive in the group activity and worked with group to identify potential skills for improving communication skills. Pt seemed to benefit from increasing awareness of healthy strategies to improve communication and identified wanting to work on improving his ability to better express himself. Will continue IOP tx to prevent decompensation, gain distress tolerance skills, and improve daily functioning. Narrative Note: []
== END 2024-03-11 23:59 ==
LOC: BHIOP 08:00
PROVIDERS: PCP Internal Medicine; Referring Provider Psychiatry & Neurology Psychiatry; Visit Provider Psychiatry & Neurology Psychiatry
DX: F33.2 Major depressive disorder, recurrent severe without psychotic features (principal)
CPT/HCPCS: 90792; H2012; H2020; S9480; 90837

== ENCOUNTER 2024-03-12 07:16 | Outpatient (RCR) | payer MEDICAID, SELFPAY ==
--- NOTE | 2024-03-12 09:00 | BH.SGPN.GN ---
Behaviors/Verbalizations/Mental Status: [] Eye contact is good. Motor activity is appropriate. Appearance is casual. Speech is Appropriate. Mood is depressed. Affect is flat. Thoughts are linear and logical. No evidence of psychosis. Reviewed daily check in sheet and no reports of suicidal ideations or intent. Client Response/Progress/Benefit: [] Pt participated when prompted. Attentive. Daily symptom tracker notes 3/5 for anxiety and 2/5 for depression. Shared with the group that he has had extended sobriety and while it was overwhelming at first he reports it's getting better. He has been engaged in completing tasks and trying to stay distracted and engaged. Stressor is my brain and he elaborated on anxiety, depression, urges to drink, etc. Overall feels blah but neutral today. Limited progress noted. Beneifted from group support, encouragment, and feedback. Will continue in IOP to prevent decompensation, stabilize mood, and improve functioning. Narrative Note: []
--- NOTE | 2024-03-12 10:10 | BH.SGPN.GN ---
Behaviors/Verbalizations/Mental Status: [] Pt alert and oriented, appropriate grooming/appearance. Eye contact good. Motor activity appropriate. Speech within normal limits. Affect congruent, mood euthymic. Thoughts linear, logical, no signs of hallucinations or delusions. Client Response/Progress/Benefit: [] Pt was an active participant in group discussions. Attentive during psychoeducation. Contributed during interactive discussions in which peers attempted to define crisis. Group identified examples of potential crisis. Group also worked together to identify unhealthy responses to crisis which included lashing out, isolation, self-harm, substance abuse, and sleep disturbances. Pt identified personal warning signs as isolating, racing thoughts and substance use. Benefited from increased understanding of crisis and awareness of personal responses to crisis. Pt will continue IOP tx to increasing functioinng and prevent decompensation. Narrative Note: []
--- NOTE | 2024-03-12 11:15 | BH.MDN ---
Multi-Disciplinary Note Note 45-min Individual: Time Started:: 11:15 Date: 03/12/24 Purpose of session/treatment goals addressed:: Utilized sessions to identify current symptoms and progress in IOP. Worked with pt to identify treatment plan goals for IOP Eye Contact:: Good Motor Activity:: Appropriate Appearance:: Casual Speech:: Appropriate Mood:: Anxious and Depressed Affect:: Congruent Thoughts:: Linear, Logical and No evidence of hallucinations/delusions noted Staff Interventions:: rapport building and treatment planning Client Response:: When asked about his first week in IOP pt states I like it. Shared that he has been in previous IOPs for substance abuse and this one is much calmer. Pt reports his goals for IOP are to rewire my brain and get rid of bad habits. Unhealthy habits identified as poor sleep routine, daily cannabis use, and unhealthy eating. Other goals include getting better control of myself. Elaborated stating that he is hoping to enhance his skills to manage his depression, irritability, and anxiety. Has struggled with sobriety for several years. Currently sober a week. In recent past he will binge-drink once or twice a month. Risks/Concerns:: Denies active suicidal ideations, plan, or intent. Progress Toward Goals/Plan:: Limited progress report as pt has only attended [facility] for 3 days. He reports that he benefits from the support, structure, and education that he gets from IOP. Hoping to get back into healthy routines and is currently looking for work. 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 Will continue in IOP to maintain safety, increase healthy coping, and improve functioning. Time Stopped:: 12:00
--- NOTE | 2024-03-12 15:34 | BH.MTP_ITS ---
[facility] Treatment Plan Patient Information Program Physician:: Dana Max Primary Therapist:: Dominic Harp Psychiatric Diagnoses Psychiatric Diagnoses:: 1. Major depressive disorder, recurrent, severe without psychosis 2. Generalized anxiety disorder 3. PTSD 4. Strong cluster B traits 5. Alcohol use disorder 6. Marijuana use disorder 7. History of polysubstance use disorder Diagnosis Code(s):: F33.2 Estimated LOS Estimated LOS (in weeks):: 6 Problem/Goal #1 Problem/Goal #1 Stated Goal:: Client will reduce depressive symptoms, worthlessness, lack of concentration, negative thoughts, suicidal ideations, and crying spells AEB self-report and decreased outcome scores on the depression and suicidal ideation scales of the DMS-5 crossing cutting scales. Description of Barriers: Struggles with consistent stability, substance abuse, and unhealthy coping skills. Functional Impact: Unable to maintain consistent employment due to mental health; emotion dysregulation impacting his relationship with family/supports. Goal Relevant Strengths/Supports: Supportive family; appears motivated to address mental health struggles. Objectives Objective #1: Stated Objective: Client will work with therapist to develop a ?crisis management plan? which includes emergency telephone numbers, internal/external coping strategies for SI/overwhelming emotions, lists of supports, warning signs, positive aspects of life, and motivations. Interventions: Through individual and group counseling pt will learn and practice various internal and external coping skills for emotional dysregulation. Therapist will provide patient with safety plan worksheet (if he desires) and work with pt. to develop individualized plan which includes internal coping skills, external coping skills, support, and crisis numbers. Discharge Criteria: Complete crisis management plan. Target Date: 04/23/24 Review Date: 03/21/24 Objective #2: Stated Objective: Client will identify 2-3 cognitive distortions and negative self-talk messages that lead to mood dysregulation and learn 2-3 ways to manage these thoughts to improve mood stability. Interventions: Through individual and group counseling will assist client in identifying, challenging, and replacing dysfunctional thoughts/cognitive distortions with positive, more realistic thoughts. Therapist will use CBT and DBT techniques to help client gain awareness of thinking errors and learn how to more effectively handle negative thoughts that reinforce unhealthy coping sk ills. Discharge Criteria: Will identify 2-3 commonly used cognitive distortions and negative self-talk as well as 2-3 ways to manage/challenge. Target Date: 04/23/24 Review Date: 03/21/24 Problem/Goal #2 Problem/Goal #2 Stated Goal:: Client will increase emotional regulation and reduce intensity and duration of anxiety symptom AEB by self-report and decrease of scores on the anxiety domain of the DSM-5 cross-cutting scales. Description of Barriers: Struggles with consistent stability, substance abuse, and unhealthy coping skills. Functional Impact: Unable to maintain consistent employment due to mental health; emotion dysregulation impacting his relationship with family/supports. Goal Relevant Strengths/Supports: Supportive family; reports motivation to address mental health struggles. Objectives Objective #1: Stated Objective: Client will identify 5 physical warning signs, 2-3 anger/anxiety triggers, and 5 ways to calm and manage anxiety/anger. Pt will develop an anger/anxiety scale indicating degrees of anger/anxiety from 0-10 and physiological signals of his level of anger/anxiety Plan is become aware of escalating anger/anxiety and implement skill early to avoid escalation. Interventions: Through individual and group counseling will education the client on calming techniques as part of a tailored strategy for reducing chronic and acute physiological tension that accompanies the escalation of his anxiety/angry feelings Discharge Criteria: Able to identify 5 physiological warning signs, 2-3 anger/anxiety buttons, and 5 ways to calm. Target Date: 04/23/24 Review Date: 03/21/24 Objective #2: Stated Objective: Develop a healthy sleep and eating routine(goal requested by patient) AEB by reduction of scores on the sleep domain of the DSM5 cross-cutting scales. Interventions: Through individual and group counseling will provide psychoeducation on healthy sleep habits and nutritional psychology. Discharge Criteria: Pt will have developed a healthier sleep and nutrition routine AEB by self-report and score on outcome measurements. Target Date: 04/23/24 Review Date: 03/21/24
--- NOTE | 2024-03-14 09:05 | BH.SGPN.GN ---
Behaviors/Verbalizations/Mental Status: [] Eye contact is good. Motor activity is appropriate. Appearance is casual. Speech is Appropriate. Mood is anxious and depressed. Affect is congruent. Thoughts are linear and logical. No evidence of psychosis. Reviewed daily check in sheet and no reports of suicidal ideations or intent. Client Response/Progress/Benefit: [] Pt participated when prompted. Attentive. Pt states that he is ?on edge? today. Daily symptom tracker scores note 2/5 for anxiety and depression. He did not elaborate on triggers or thoughts which are causing distress stating, ? It?s just a lot of mental health stuff?. Short check in this AM. He was able to identify a mental health win which was that he was ?social? yesterday. Limited progress noted. Benefited from group support, encouragement, and feedback. Will continue in IOP to maintain safety, prevent decompensation, and stabilize mood. Narrative Note: []
--- NOTE | 2024-03-14 09:10 | BH.NA ---
Physical Data Vital Signs Pulse Rate: 73 Blood Pressure: 143/89 Height/Weight Height: 1.75 m Weight:: 77.111 kg Weight in Pounds: 170.0 lbs Current Medication Compliance Medication Compliance Do you take your medication as prescribed?: Yes Nutritional History Appetite Nutritional Instructions: Describe your appetite:: Good Additional nutritional information:: Client denies change in appetite. Client states he has slowly been losing weight since he stopped drinking alcohol. Functional Assessment Sleep Pattern Describe any problems with sleeping: Client states he sleeps about 6 hours per night. Sensory/Communication Assess Vision Problems Do you have any vision problems?: Glasses Medical Problems/History Pain Assessment Do you have acute or chronic pain?: No Additional History Additional comments:: depression, anxiety, PTSD Surgical History Surgical History Have you had any surgeries? If so, list type and date:: Yes (wrist, wisdom teeth) Substance Abuse Substance Abuse Please describe substance abuse in the last 30 days:: Client states he has been using alcohol almost daily since the age of 20, but states he has been taking his Naltrexone in the last week and states the last time he used alcohol was over a week ago. Client states he vapes nicotine daily. Client states he used to use marijuana daily, but states he only uses it a few times a week now. Client states he used to drink up to 400mg of caffeine per day, but states he only drinks pop or tea occasionally now. Mental Status Summary Mental Status Significant Findings/Observations on Appearance and Mood:: Client is alert and oriented x 4. Client is casually groomed. Client is cooperative with assessment. Client makes fair eye contact. Client's voice has normal rate and volume. Client has a constricted affect. Client makes logical associations and has normal processing. Client denies delusions/hallucinations. Client has a history of chronic passive SI, but denies current SI at this time today. Suicide Assessment Suicidal Ideation Are you currently or have you been suicidal in the past?: Yes Suicidal Intentional Rating Scale (SIRS): Suicidal thoughts (past) (chronic passive SI history, denies SI this day) Physician Notification Past Psychiatric History MH Treatment Hx Past Psychiatric Medications:: Lexapro and current Paxil and Wellbutrin Age of first mental health symptoms: Client states he was first depressed around age 15 and has been off and on medication for depression since that time. Client has been in several substance abuse programs that he has not been able to finish. Describe (age, circumstance, etc) any past hospitalizations: x 1 a few years ago after a suicide attempt Current providers for mental health treatment (counselor, psychiatrist, clinical case manager, etc.): None. Fall Risk Assessment Age Age: Less than 60 Mental Status Mental Status: Willing & able to ask for assistance when needed Physical Status Physical Status: No problems Impairments Impairments: None Elimination Elimination: Continent AND independent Gait or Balance Gait or Balance: Walks independently Hx of Falls History of falls in the past 6 months: No known history Medications/Substances Psychotropics:: Antidepressants Medications/substances used within the past 24 hours or ordered to administer: 1-2 of the medications/substances listed above Total Score Total Points:: 1 RN Summary of Impressions Impressions Recommendations Impressions: Psychiatric Issues: major depressive disorder, generalized anxiety disorder, PTSD, alcohol use disorder, marijuana use disorder Level of Care How do the client's current symptoms and functional deficits support need for this level of care?: Client was referred to IOP after an anger episode last month that resulted in police going to his house after family called the police for client's behavior. Client was having SI at that time but was not admitted to the hospital. Client has been in several outpatient substance abuse programs that he has not been able to finish. Client has been using alcohol on a daily basis for several years. Client denies SI this day. Client states he has had some mood instability with some crying and feeling on edge with anger outbursts that have been affecting his relationship with his family. IOP will promote gains and prevent further decompensation while providing social support and skills training.
--- NOTE | 2024-03-14 10:10 | BH.SGPN.GN ---
Behaviors/Verbalizations/Mental Status: [] Eye contact is good. Motor activity is appropriate. Appearance is casual. Speech is Appropriate. Mood is euthymic. Affect is congruent. Thoughts are linear and logical. No evidence of psychosis. Client Response/Progress/Benefit: [] Pt engaged participant AEB listening to others, engaging in activity, and providing feedback at times. Attentive during psychoeducation and provided insight into obstacles that impede mental wellness. Pt shared with group current mental health reality and desired mental health reality. Stating he would like to utilize supports more . Identified barriers to desired reality include: self sabotage, anxiety and isolation. Benefited from taking look at current mental health state and obstacles for progress. Pt to continue IOP tx to improve mood stability, increase self care, and prevent decompensation. Narrative Note: []
[2024-03-14 10:23] VITALS: BP 143/89; PULSE 73
--- NOTE | 2024-03-14 11:10 | BH.SGPN.GN ---
Behaviors/Verbalizations/Mental Status: [] Eye contact is good. Motor activity is appropriate. Appearance is casual. Speech is Appropriate. Mood is euthymic. Affect is congruent. Thoughts are linear and logical. No evidence of psychosis. Client Response/Progress/Benefit: [] Pt was an engaged participant in group discussion and activity. Worked with group to identify strategies to help overcome barriers and obstacles to desired reality. Group developed strategies for the common barriers. Identified personal barriers to desired reality and choose one obstacle to work. Pt stated he wants to work on barrier of isolation by utilizing opposite action. Pt seemed to benefit from increased repertoire of healthy coping skills/strategies to overcome common barriers to moving forward. Pt is to continue IOP to increase healthy coping skills, challenge distortions, and increase overall thinking. Narrative Note: []
--- NOTE | 2024-03-16 09:05 | BH.SGPN.GN ---
Behaviors/Verbalizations/Mental Status: [] Eye contact is good. Motor activity is appropriate. Appearance is casual. Speech is Appropriate. Mood is anxious and depressed. Affect is congruent. Thoughts are linear and logical. No evidence of psychosis. Reviewed daily check in sheet and no reports of suicidal ideations or intent. Client Response/Progress/Benefit: [] ?Pt participated at times. Attentive. Daily symptom tracker notes 2/5 for anxiety and /5 for depression. Pt states ? I?m positive but anxious?. Increased social engagements with friends w/o alcohol use. Believes that medication changes and IOP have been beneficial stating ? I?m more calm and more level?. Increased awareness of cognitive distortions and practicing challenging and reframing of thoughts which has been beneficial. Progress noted. Benefited from group support, encouragement, and feedback. Will continue in IOP to prevent decompensation, maintain safety, stabilize mood, and improve functioning. Narrative Note: []
--- NOTE | 2024-03-16 10:10 | BH.SGPN.GN ---
Behaviors/Verbalizations/Mental Status: []Eye contact is fair. Motor activity is appropriate. Appearance is casual. Speech is Appropriate. Mood is anxious. Affect is constricted. Thoughts are linear and logical. No evidence of psychosis. Client Response/Progress/Benefit: [] Pt was an engaged participant AEB listening attentively to others, taking notes, and providing feedback in small group discussions. Attentive during psychoeducation AEB by note taking and providing some input. Pt worked along with peers in small groups to define inappropriate guilt and appropriate guilt. Interactive discussion on examples of both inappropriate and appropriate guilt. Pt able to connect impact inappropriate guilt can have on MH. Pt gave an example of having inappropriate guilt about feeling responsible for struggling in life so he beats himself up over it. Benefited from increased awareness of guilt and the differences between appropriate and inappropriate guilt. Will continue in IOP to improve view of self, challenge negative/distorted thoughts, and prevent decompensation.
--- NOTE | 2024-03-16 11:15 | BH.SGPN.GN ---
Behaviors/Verbalizations/Mental Status: []Pt alert and oriented, casually dressed and groomed. Eye contact poor. Motor activity appropriate. Speech within normal limits. Affect congruent, mood depressed. Thoughts linear, logical, no signs of hallucinations or delusions. Client Response/Progress/Benefit: []Pt engaged participant AEB listening attentively to others and providing input throughout group. Pt worked within their small group to identify strategies to manage inappropriate guilt. Pt worked with group to identify strategies for both appropriate and inappropriate guilt. Pt selected?self-forgiveness when pt feels inappropriate guilt about not working. Pt seemed to benefit from learning about strategies to manage appropriate and inappropriate guilt. Pt will continue IOP tx to prevent decompensation, improve daily functioning, and reduce use of unhealthy coping skills. Narrative Note: []
--- NOTE | 2024-03-19 09:05 | BH.SGPN.GN ---
Behaviors/Verbalizations/Mental Status: [] Eye contact fair to good. Motor activity appropriate. Speech within normal limits. Affect congruent, mood content, anxious. Thoughts linear, logical, no signs of hallucinations or delusions. Reviewed client?s symptom tracker, denies SI, plan, or intent as of 03/19/2024. Client Response/Progress/Benefit: [] Client receptive of session, attentive and willing to process with group. Reports improved sx of anxiety ?(1/5) and depression (1/5) per daily sx tracker. ?Identified mental health ?wins? as engaging in several productive activities throughout the weekend. Went on to describe following-through with going to [facility] to address a stressor related to his insurance benefits. Reports feeling proud and relieved in doing so as he discovered it was just a misunderstanding. Additional win noted as playing disc golf with a friend. Identified this got him outside, active, and social which he reports helps with improving his mood. Discussed plans to make weekly plans to disc golf. Current stressor identified as continuing to look for a job. Reports that although this is a stressor, he is not allowing it to keep him from maintaining motivation and has applied to several jobs in the last few days. Receptive of encouragement and support from the group, as well as identified making a list of potential employers as a small step he can take towards addressing his stressor. Recommended continued IOP tx to further improve mood stability, promote healthy skill building and application, as well as prevent decompensation. Narrative Note: []
--- NOTE | 2024-03-19 10:11 | BH.SGPN.GN ---
Behaviors/Verbalizations/Mental Status: [] Pt alert and oriented, casually dressed and groomed. Eye contact good. Motor activity appropriate. Speech within normal limits. Affect full, mood euthymic. Thoughts linear, logical, no signs of hallucinations or delusions. Client Response/Progress/Benefit: [] Pt participated in group discussion. Group worked together to identify benefits of healthy relationships which included encouragement, motivation, accountability, connectedness and minimized stress. Group identified factors that lead to unhealthy relationships which included low self esteem, trauma, lack of communication, parent's negative relationship growing up, and substance use. Benefited from increased insight and awareness of benefits of healthy relationships and factors that contribute to unhealthy relationships. Will continue in IOP to increase emotional regulation skills, challenge negative thoughts, and prevent decompensation. Narrative Note: []
--- NOTE | 2024-03-19 11:11 | BH.SGPN.GN ---
Behaviors/Verbalizations/Mental Status: [] Pt alert and oriented, casually dressed and groomed. Eye contact fair. Motor activity appropriate. Speech within normal limits. Affect full, mood euthymic, Thoughts linear, logical, no signs of hallucinations or delusions Client Response/Progress/Benefit: [] Client responded well to session, engaged and taking notes throughout. Worked with group to connect components of the experiential activity with characteristics of healthy and unhealthy relationships. Attentive during psychoeducation about characteristics of healthy, unhealthy, and abusive relationships. Client struggled to come up with an area he can improve in a relationship. Appeared to benefit from identifying current healthy relationship attributes and an area client wants to work on to build healthier relationships. Client to continue IOP to increase healthy coping skills, stabilize mood, and prevent decompensation. Narrative Note: []
--- NOTE | 2024-03-21 10:00 | BH.SGPN.GN ---
Behaviors/Verbalizations/Mental Status: [] Eye contact is good. Motor activity is appropriate. Appearance is casual. Speech is Appropriate. Mood is depressed. Affect is congruent. Thoughts are linear and logical. No evidence of psychosis. Client Response/Progress/Benefit: [] Pt participated at times. Attentive. Participated in and was engaged during experiential activity. Able to relate experiential activity to group topic of FOF. Attentive during interactive discussion on what failure means to the group in which peers identified and defined failure and Fear of Failure. Attentive as group was able to identify impact of fear of failure on mental health identifying that it can lead to; giving up, isolation, complacency, self-sabotage, being hesitant to ask for help, and the self-fulfilling prophecy. Attentive during interactive discussion on the impact that FOF can have on mental wellness, depression, anxiety, career, relationships, and growth. Benefited from increased awareness of how the role that FOF plays in mental health and decision-making. Will continue in IOP to maintain safety, prevent decompensation, increase healthy coping, and improve functioning. Narrative Note: []
--- NOTE | 2024-03-21 11:05 | BH.SGPN.GN ---
Behaviors/Verbalizations/Mental Status: []Pt alert and oriented, neatly dressed and groomed. Eye contact good. Motor activity appropriate. Speech within normal limits. Affect congruent, mood euthymic and anxious. Thoughts linear, logical, no signs of hallucinations or delusions. Client Response/Progress/Benefit: []Pt responded well to session, engaged in the experiential activity and attentive throughout group processing. Pt reported fear of failure has kept pt from furthering his career. Pt completed fear of failure worksheet and was able to identify thoughts and behaviors that reinforce personal fear of failure including fear of disappointing others, lack of confidence, and negative people. Pt participated in group discussion regarding strategies to overcome fear of failure. Identified wanting to work on reframing distortions and using opposite action. Appeared to benefit from increased knowledge of strategies to combat fear of failure and gaining self-awareness. Pt will continue IOP tx to improve self-confidence, reduce negative self-talk, and improve daily functioning. ? Narrative Note: []
--- NOTE | 2024-03-21 11:07 | PCM.BH.PN ---
Progress Note Progress Note: History of Present Illness/Interim History: The patient is a 28-year-old single, male with a history of depression, anxiety, PTSD, alcohol use disorder, marijuana use disorder, and polysubstance use disorder who is seen in follow-up at the [facility] behavioral health [facility]. The patient was referred here after attending 3 outpatient programs for substance abuse from 2020 to September 2023 and was sent here to work on other mental health issues that may be contributing to his substance use relapses. Patient is looking for a job now and is somewhat stressed by this. He feels he is learning valuable skills in the IOP and states that in the last 2 weeks he feels he is functioning better and is isolating himself much less than before. According to the staff the patient has been consistent in his attendance and engaged in the program. I last saw the patient 2 weeks ago and at that time naltrexone was added to help with cravings and Lamictal to help with mood stabilization and anger outbursts. The patient is tolerating these medications well. He feels the naltrexone has greatly decreased his alcohol cravings. He has not used any alcohol since 2-1/2 weeks ago. He still uses marijuana on occasion but was using it daily before. He has not used any other drugs. He denies passive thoughts of now in the past 2 weeks. He denies also any suicidal ideation in the past 2 weeks active or passive. He states he almost had an anger outburst but was able to use skills and did not have an anger outburst. Most of his anger outbursts occur when using alcohol. He denies hopelessness now but still has some symptoms of depression. He denies crying spells now also. He also denies homicidal ideation, hallucinations, delusions or panic attacks. Current Psychiatric Medications: [] Paxil 30 mg p.o. daily (times several years); Wellbutrin XL 150 mg every morning (times maybe a month now); Lamictal 25 mg p.o. daily to increase to 50 mg p.o. daily tomorrow (started 2 weeks ago); naltrexone 50 mg p.o. daily (started 2 weeks ago). Mental Status Examination: [] The patient is a 28-year-old male who appears normal for stated age and is seen wearing glasses. He has a nose piercing, earrings and a tattoo on his left anterior forearm. He has no psychomotor agitation or retardation and is cooperative during the interview. Eye contact is good and speech is normal rate and rhythm and fluent with no pressure. Mood is depressed. Affect is mildly constricted. Thought process is goal-directed and organized. Thought content: The patient is a little worried about the stress of looking for a job or working part-time. There is no evidence of passive thoughts of , active or passive suicidal ideation, homicidal ideation, hallucinations or delusions. Reality testing is intact. Intelligence is average. Judgment is intact. Insight is limited but some present and improving. Impulsivity is high. Diagnoses: [] 1. Major depressive disorder, recurrent, severe without psychosis (improving) 2. Generalized anxiety disorder 3. PTSD 4. Strong cluster B traits 5. Alcohol use disorder (sober x 2-1/2 weeks) 6. Marijuana use disorder 7. History of polysubstance use disorder 8. Primary support, work and financial issues Plan: [] The patient will continue the [facility] and behavioral health at [facility] as the structure, support, education and group therapy will hopefully prevent worsening of the patient's symptoms. He felt safe during the interview and if it anytime he does not feel safe he agrees to let us know or go to the emergency room. The risks, options, possible complications and side effects of the medications were again discussed with the patient and he understands and accepts these including serotonin syndrome and Hernandez-Scooter syndrome. He will increase his Lamictal to 50 mg daily tomorrow. No other medication changes were made today and the patient will continue to follow-up with his outpatient providers and I will see the patient in follow-up in several weeks. He agrees to stay sober from all alcohol and drug use.
--- NOTE | 2024-03-23 09:05 | BH.SGPN.GN ---
Behaviors/Verbalizations/Mental Status: [] Eye contact is good. Motor activity is appropriate. Appearance is casual. Speech is Appropriate. Mood is anxious. Affect is congruent. Thoughts are linear and logical. No evidence of psychosis. Reviewed daily check in sheet and no reports of suicidal ideations or intent. Client Response/Progress/Benefit: [] Pt participated at times during the group discussion. Attentive. Daily symptom tracker notes 10/17 for anxiety. Pt states I don't have a while lot to say. I'm trying to adapt to life with my addiction. Mental health wins are increase energy and motivation which has led to increased activity. Completing tasks and accomplishing goals which has improved confidence and self-esteem. Decreased ruminations. Progress noted per pt report. Beneifted from group support, encouragment, and feedback. Will continue in IOP to maintain safety, increase healthy coping, and improve functioning. Narrative Note: []
--- NOTE | 2024-03-23 10:15 | BH.SGPN.GN ---
Behaviors/Verbalizations/Mental Status: []Client alert and oriented, casually dressed and groomed. Eye contact good. Motor activity appropriate. Speech within normal limits. Affect congruent, mood content. Thoughts linear, logical, no signs of hallucinations or delusions. Client Response/Progress/Benefit: []Pt engaged in session AEB listening attentively to others and providing input throughout. Pt engaged in activity, able to connect how it can be uncomfortable and difficult to accept when things are out of one?s own control. Pt worked with group to identify what things in life can be hard to accept. Group identified things hard to accept as: change, loss, mental health diagnosis, other?s behaviors, and failure. Pt identified struggling to accept his self-worth is not tied to his success. Seemed to benefit from increased awareness of the importance of acceptance. Pt to continue in IOP tx to increase consistent application of healthy coping skills, improve view of self, and prevent decompensation. Narrative Note: []
--- NOTE | 2024-03-23 11:15 | BH.MDN_ITS ---
Multi-Disciplinary Note Note 45-min Individual: Time Started:: 11:15 Date: 03/23/24 Purpose of session/treatment goals addressed:: Reviewed current symptoms and progress in IOP. Addressed treatment plan goals 1 and 2. Eye Contact:: Good Motor Activity:: Appropriate Appearance:: Casual Speech:: Appropriate Mood:: Anxious Affect:: Congruent Thoughts:: Linear, Logical and No evidence of hallucinations/delusions noted Staff Interventions:: psychoeducation on: (Healthy slepp routine, healthy eating habits. ), CBT techniques (cogntive distortions, mistaken beliefs) and rapport building Client Response:: Reports progress in IOP level of care. I'm having more good days than bad. Pt had expressed goals to improve sleep routine and healthy eating habits at last session. Since then he has developed a new sleep routine and is currently averaging 7/5 hours per night. He has also stopped utilizing blue screens such as phone and TV prior to bed and has been researched other options to impove sleep routine. Making a conscious effort to eat healthy which involved less fast food as well. Majority of the session focused on psychoeducation on mistaken beliefs and cognitive distortions. According to pt a great deal of his negative automatic thoughts are centered around his self- esteem being based on job and accomplishments, however he is currently unemployed and has struggled to maintain any consistent work for several years. This also with being financially dependent on parents. In the past this would often lead to desire to escape through alcohol and drugs. Risks/Concerns:: Denies active suicidal ideations, plan, or intent Progress Toward Goals/Plan:: Progress noted per pt report. Medication compliant reporting that medications are helping with urges, have decreased brain fog, and overall reports fairly low depression. His anxiety continues to impact his functioning. According to pt he is inpatient with himself and has high expectations that he needs to be back to work full-time. The better I feel the more pressure I put on myself. Plan to work with patient on the role of cognitive distortions and core beliefs on thoughts, emotions, and behaviors. Was given a mistaken beliefs questionnaire to complete. There is also concern for relapse prevention. Encouraged pt to complete a list of disadvantages to drinking to utilize if he experiencing a significant craving. Will continue in IOP to maintain safety, stabilize mood, increase healthy coping, and improve functioning. Time Stopped:: 12:00
--- NOTE | 2024-03-26 09:05 | BH.SGPN.GN ---
Behaviors/Verbalizations/Mental Status: [] Eye contact is good. Motor activity is appropriate. Appearance is casual. Speech is Appropriate. Mood is depressed. Affect is flat. Thoughts are linear and logical. No evidence of psychosis. Reviewed daily check in sheet and no reports of suicidal ideations or intent. Client Response/Progress/Benefit: [] Pt participated when prompted. Attentive. Daily symptom tracker notes 2/5 for anxiety and /5 for depression. Pt states I don't have much to say Nothing much going on. Shared that he is trying to get used to new routine. Increased fatigue over the weekend let myself be lazy. He did complete tasks such as yard work and helping his father with a project. Brief check-in today. Benefited from group support, encouragment, and feedback. Will continue in IOP to prevent decompensation, stabilize mood, and increase healthy coping skills. Narrative Note: []
--- NOTE | 2024-03-26 10:10 | BH.SGPN.GN ---
Behaviors/Verbalizations/Mental Status: []Pt alert and oriented, casually dressed and groomed. Eye contact fair. Motor activity appropriate. Speech within normal limits. Affect congruent, mood anxious. Thoughts linear, logical, no signs of hallucinations or delusions. Client Response/Progress/Benefit: [] Pt connected with topic of anxiety and participated throughout, providing input and taking notes. Participated throughout interactive discussion defining anxiety and identifying cognitive and physiological symptoms of anxiety. Group discussed how anxiety can prevent them from trying new things. Pt identified their physical signs of anxiety as: heart racing, tight feeling chest, restless, and nausea. Pt identified safety behaviors as: avoidance, isolate, quit before start, and cancel plans. Benefited from increased awareness and insight on anxiety and its impact. Pt will continue IOP tx to promote use of healthy coping skills, challenge distortions, and prevent decompensation.
--- NOTE | 2024-03-26 11:15 | BH.SGPN.GN ---
Behaviors/Verbalizations/Mental Status: []Pt alert and oriented, neatly dressed and groomed. Eye contact good. Motor activity appropriate. Speech within normal limits. Affect congruent, mood euthymic. Thoughts linear, logical, no signs of hallucinations or delusions. Client Response/Progress/Benefit: []Pt was an active participant AEB pt providing input and listening attentively to peers. Attentive during psychoeducation on mindfulness coping skills and their impact on reducing anxiety and improving overall mental health wellness. Group was able to identify self-soothing and mind-based coping skills which included: 5-senses, meditation, deep breathing, TIPP, thought challenging, and progressive muscle relaxation. Pt also participated with peers in practicing mindfulness skills in session including deep breathing and PMR. Pt would like to work on using delay, distract, and decide and journaling to manage anxiety. Appeared to benefit from increasing repertoire of anxiety reduction skills. Pt will continue in [facility] tx to promote sobriety, improve daily functioning, and combat distortions. Narrative Note: []
--- NOTE | 2024-03-28 09:00 | BH.SGPN.GN ---
Behaviors/Verbalizations/Mental Status: [] Pt alert and oriented, neatly dressed and groomed. Eye contact good. Motor activity appropriate. Speech within normal limits. Affect congruent, mood tired and hopeful.. Thoughts linear, logical, no signs of hallucinations or delusions. Reviewed pt?s symptom tracker, no risk for suicidal ideation, plan, or intent 03/28/24 Client Response/Progress/Benefit: []Pt responded well to session, attentive and engaged. Pt reports feeling tired this morning, but also hopeful. Pt shared he is stressed about money, but he is actively applying for jobs. Pt's mental health wins today include catching himself using more positive self-talk and using more opposite action. Pt appeared to benefit from reflecting on progress and connecting with peers. Pt will continue IOP tx to promote mood stability, further improve distress tolerance, and increase application of healthy coping skills. Narrative Note: []
--- NOTE | 2024-03-28 10:10 | BH.SGPN.GN ---
Behaviors/Verbalizations/Mental Status: [] Pt alert and oriented, casually dressed and groomed. Eye contact good. Motor activity appropriate. Speech within normal limits. Affect congruent, mood anxious and depressed. Thoughts linear, logical, no signs of hallucinations or delusions. Client Response/Progress/Benefit: [] Pt participated mainly during small group discussions. Attentive during psychoeducation about defense mechanisms. Showed engagement during small group discussions and helped group identify which defense mechanisms were maladaptive, adaptive, or ?somewhere in the nieto.? Pt worked with small group on identifying how each defense mechanism can impact mental health and gave examples. ?Seemed to benefit from gaining awareness about the different defense mechanisms. Pt to continue IOP tx to prevent decompensation, maintain safety, increase healthy coping, and improve functioning. Narrative Note: []
--- NOTE | 2024-03-28 11:00 | BH.MDN ---
Multi-Disciplinary Note Note 60-min Individual: Time Started:: 11:00 Date: 03/28/24 Purpose of session/treatment goals addressed:: Reviewed symptomts and current progress. Addressed treatment goal 1; obj 2. Eye Contact:: Good Motor Activity:: Appropriate Appearance:: Casual Speech:: Appropriate Mood:: Anxious Affect:: Congruent Thoughts:: Linear, Logical and No evidence of hallucinations/delusions noted Staff Interventions:: psychoeducation on: (Mistaken core beliefs) and CBT techniques Client Response:: Pt completed mistaken beliefs questionnaire which we reviewed. According to questionnaire pt scores high on the belief You likely believe that you have to be perfect in some or many area of your life. You make excessive demands on yourself. There is no room for mistakes. Pt agrees that belief describes him very accurately. Insight on when this belief developed and its impact on his automatic thoughts and unhealthy coping skills (substance abuse, avoidance). If I can't do something perfect I give up. Questionnaire shows that he strongly believes he should be able to find a quick solution to every problem which is unrealistic in regards to addiction, financial independence, mental health, and trust which are his primary stressors. Therefore feels like a failure. In the past would utilize alcohol to cope. Currently sober for several weeks. Utilizing healthy skills currently. Risks/Concerns:: Denies suicidal ideations, thoughts, or plan. Progress Toward Goals/Plan:: Pt responded well to session. Increased awareness. Therapist was able to begin to challenge core mistaken belief along with cognitive distortion of absolute thinking. Progress noted. Medication compliant. Consistent and engaged in IOP. Pt completed 3 week outcomes measure this AM and treatment team will meet this afternoon to discuss progress. Will continue in IOP to maintain safety, prevent decompensation, increase healthy coping, and improve functioning. Time Stopped:: 12:00
--- NOTE | 2024-03-28 14:27 | BH.MTP_ITS ---
Treatment Plan Review Demographics Date of Admission:: 03/06/24 Date of Treatment Plan Review:: 03/28/24 Admitting Diagnoses:: 1. Major depressive disorder, recurrent, severe without psychosis (improving) 2. Generalized anxiety disorder 3. PTSD 4. Strong cluster B traits 5. Alcohol use disorder (early remission) 6. Marijuana use disorder 7. History of polysubstance use disorder Current Diagnoses:: 1. Major depressive disorder, recurrent, severe without psychosis (improving) 2. Generalized anxiety disorder 3. PTSD 4. Strong cluster B traits 5. Alcohol use disorder (sober x 3-1/2 weeks) 6. Marijuana use disorder 7. History of polysubstance use disorder Patient Status Patient's Response to Treatment:: Consistent and engaged in IOP. Medication compliant. According to pt he benefits from IOP structure, support, and psychoeducation. Denies substance use since admission to [facility]. Status of Current Problems and Symptoms: Outcomes measurements show a 47% reduction in symptoms since admission to [facility]. Scores indicate a 50% reduction on the depression domain, 50% reduction on the anger domain, 75% reduction in repetitive thoughts, and 30% anxiety domain. However no change on the suicidal ideation domain; pt reports thoughts rarely and less than a day or two in the past 2 weeks. Pt self-reports decrease depression and anxiety as well as increased functioning. Pt continues to report daily struggles with anxiety, depression, and unrealistic expectations. Often feels like a failure due to being 29 and living with parents. Pressure to find a job and be financially independent. In the past this pressure would lead to rushing into a job, getting burned out, emotion dysregulation, and relapse. Progress Problem #1: Problem Name:: Depression Status of Goals:: Outcomes scores show 50% reduction in depression. Obj1- Incomplete; Pt had completed a safety plan and is aware of crisis numbers however still must individualized this. Obj2- incomplete; awareness of mistaken beliefs and cog. distortions, however in the early stages of being able to reframe and challenge these independently. Team Recommendations:: Due to progress noted plan would be to continue with IOP and current treatment plan. Problem #2: Problem Name:: Anxiety Status of Goals:: Outcome scores indicate 30% reduction in anxiety Obj1- incomplete; pt is learning about anxiety triggers, warning signs, and coping skills through group psychoeduction Object 2- incomplete; pt has modified his sleep and eating routines. Per self report improved sleep however outcomes indicate no change since admission Team Recommendations:: Due to progress noted plan would be to continue with IOP and current treatment plan.
--- NOTE | 2024-03-30 09:05 | BH.SGPN.GN ---
Behaviors/Verbalizations/Mental Status: [] Eye contact is good. Motor activity is appropriate. Appearance is casual. Speech is Appropriate. Mood is anxious. Affect is congruent. Thoughts are linear and logical. No evidence of psychosis. Reviewed daily check in sheet and no reports of suicidal ideations or intent. Client Response/Progress/Benefit: [] Pt was an active participant in group discussion. Attentive. Daily symptom tracker notes 3/5 for anxiety and 1/5 for depression. According to pt is managing thoughts and emotions pretty well. Increased energy and motivation. Mood stabilizers are doing their job. Believes that he went 14 years without proper medication and is currently on something that works. Maintaining sobriety. Has a potential part-time job lined up. Progress noted. Benefited from group support, encouragement, and feedback. Will continue in IOP to maintain safety, prevent decompensation, stablize mood, and improve functioing. Narrative Note: []
--- NOTE | 2024-03-30 10:15 | BH.SGPN.GN ---
Behaviors/Verbalizations/Mental Status: []Pt alert and oriented, neatly dressed and groomed. Eye contact good. Motor activity appropriate. Speech within normal limits. Affect congruent, mood euthymic. Thoughts linear, logical, no signs of hallucinations or delusions. Client Response/Progress/Benefit: [] Pt responded well to session AEB sharing and listening attentively to others. Group identified types of social support (family, pets, professionals, spiritual, etc) and provided examples of benefits of having social support, including: decreased stress, increased self-esteem, encouragement, distraction, etc. Pt also participated in group discussion regarding the barriers to accessing support which pt stated he used to rely on toxic supports. Pt participated in experiential activity illustrating the impact communication, boundaries, and patience play in creating healthy support systems. Pt appeared to benefit from increased knowledge of the benefits of social support and greater self-awareness. Will continue IOP to promote sobriety, improve distress tolerance, and increase self-confidence. ? Narrative Note: []
--- NOTE | 2024-03-30 11:15 | BH.SGPN.GN ---
Behaviors/Verbalizations/Mental Status: []Pt alert and oriented, neatly dressed and groomed. Eye contact good. Motor activity appropriate. Speech within normal limits. Affect congruent, mood euthymic. Thoughts linear, logical, no signs of hallucinations or delusions. Client Response/Progress/Benefit: [] Pt was an active participant throughout AEB contributing to discussion, providing personal examples, and taking notes. Pt processed emotions felt in the activity and how they coped in the moment. Pt provided input during discussion on the types of support our supports can provide. Pt able to identify current support system and barriers that get in the way of using supports by drawing out their own support net. Pt reported after identifying what type of supports they receive; they gained awareness that they could benefit from more social and informational supports. Pt plans to do this by continuing his job search to increase social connection. Pt seemed to benefit from identifying the type of support Pt needs to work on improving. Pt recommended to continue IOP tx to promote mood stability, reinforce healthy coping skills, and reduce negative thinking patterns. Narrative Note: []
--- NOTE | 2024-04-02 09:05 | BH.SGPN.GN ---
Behaviors/Verbalizations/Mental Status: [] Eye contact is good. Motor activity is appropriate. Appearance is casual. Speech is Appropriate. Mood is anxious. Affect is congruent. Thoughts are linear and logical. No evidence of psychosis. Reviewed daily check in sheet and no reports of suicidal ideations or intent. Client Response/Progress/Benefit: [] Pt participated at times during the group discussion. Attentive. Daily symptom tracker notes 3/5 for anxiety and 2/5 for irritability. Emotion for today is anxious and positive. Shared that his depression is declining however my anxiety is still a thing. Able to to identify mental health wins and healthy habits. Pt utilized behavioral activation this weekend as he spent time with friends and helped his father with tasks. He shared that he feels stable enough to return to work. Increased confidence that he can manage the tasks and responsibilities. Progress noted per pt report. Benefited from group support, encouragement, and feedback. Will continue in IOP to maintain safety, stabilize mood, increase healthy coping strategies, and improve functioning. Narrative Note: []
--- NOTE | 2024-04-02 10:15 | BH.SGPN.GN ---
Behaviors/Verbalizations/Mental Status: []Pt alert and oriented, casually dressed and groomed. Eye contact good. Motor activity appropriate. Speech within normal limits. Affect congruent, mood calm. Thoughts linear, logical, no signs of hallucinations or delusions. Client Response/Progress/Benefit: [] Pt was attentive during psychoeducation and participated in group activity. Group discussed what contributes to a person?s perspective and how perspective can positively or negatively impact mental health treatment. Pt reflected on their perspective today and how it is impacting them. Pt shared their perspective today is ?more optimistic and hopeful.? Pt feels he is willing to engage, and he is more motivated to change. Pt appeared to benefit from increasing awareness of different perspectives and how they can affect mental health. Pt will continue IOP tx to promote mood stability, increase distress tolerance skills, and build self-confidence. ?? Narrative Note: []
--- NOTE | 2024-04-02 11:15 | BH.SGPN.GN ---
Behaviors/Verbalizations/Mental Status: []Pt alert and oriented, casually dressed and groomed. Eye contact fair to good. Motor activity appropriate. Speech within normal limits. Affect congruent, mood content. Thoughts linear, logical, no signs of hallucinations or delusions. Client Response/Progress/Benefit: []Pt was attentive and contributed to group discussion. Pt worked with group to identify strategies that can help with challenging negative perspective. Pt completed strengths exploration worksheet, identifying empathy, creativity, and humor as personal strengths. Pt able to acknowledge how these strengths are helping pt and can continue to help pt in mental health journey. Pt identified wanting to work on leaning on strength of kindness to help with managing his anxiety. Benefited from identifying personal strengths and strategies for enhancing use of identified strengths. Pt will continue IOP tx to increase coping skill repertoire, improve mood stability, and prevent decompensation. Narrative Note: []
--- NOTE | 2024-04-04 09:05 | BH.SGPN.GN ---
Behaviors/Verbalizations/Mental Status: [] Eye contact is good. Motor activity is appropriate. Appearance is casual. Speech is Appropriate. Mood is depressed and irritable. Affect is congruent. Thoughts are linear and logical. No evidence of psychosis. Reviewed daily check in sheet and no reports of suicidal ideations or intent. Client Response/Progress/Benefit: [] Pt participated at times during the group discussion. Attentive. ? I feel into a rut yesterday?. Emotion for today is ?frustrated?. Elaborated on mental health struggles with led to negative thoughts, isolation, avoidance, and anhedonia. Decompensation also resulted in increased urges to self-medicate, however remains sober. Group was able to help reframe his thoughts and challenge his perspective to identify resiliency. Peers also normalized struggles and bad moments which was beneficial. Will continue in IOP to maintain safety, stabilize mood, increase healthy coping, and improve functioning. Narrative Note: []
--- NOTE | 2024-04-04 10:10 | BH.MDN ---
Multi-Disciplinary Note Note 45-min Individual: Time Started:: 10:10 Date: 04/04/24 Purpose of session/treatment goals addressed:: Reviewed current symptoms and stressors. Addressed treatment plan goal 1 (depression). Eye Contact:: Good Motor Activity:: Appropriate Appearance:: Casual Speech:: Appropriate Mood:: Depressed Affect:: Congruent Thoughts:: Linear, Logical and No evidence of hallucinations/delusions noted Staff Interventions:: psychoeducation on: (Behavior activation) and goal setting Client Response:: Pt wished to discuss mental health struggle and decompensation yesterday. According to pt he slept till noon, messed around on the internet for several hours, started laundry, and went to bed. Isolated for most of the day and struggled to find motivation. Views this as a failure and is concerned about regression. Utilized the session to use yesterday's event to identify areas to learn from rather than point out or focus on lack of skill use. With little prompting pt was able to identify that he struggles with internal motivation. If others give him tasks (parents, jobs) he will complete all the tasks, however when left on my own he struggles to identify what to do which often leads to doing nothing. If he is inactive this exacerbates urges to drink and depression. Receptive to education on behavior activation and internal vs external motivation. Risks/Concerns:: Denies active suicidal ideations, plan, or intent. No risks or concerns noted. Progress Toward Goals/Plan:: Increase awareness and insight. Worked with therapist to identify goals/tasks for tomorrow and this weekend. List was created and handout given regarding behavior activation and incorporating tasks that provide purpose/meaning. Also praised the pt for implementing relapse prevention skills for urges to drink. According to pt had he not been in IOP or on effective medications to help with mood/thoughts/urges he might have relapsed. Will continue in IOP to maintain safety, stabilize mood, and improve functioning.
--- NOTE | 2024-04-04 11:57 | PCM.BH.PN ---
Progress Note Progress Note: History of Present Illness/Interim History: The patient is a 28-year-old single, male with a history of depression, anxiety, PTSD, alcohol use disorder, marijuana use disorder and polysubstance use disorder who is seen in follow-up at the [facility] behavioral health IOP. I last saw the patient 2 weeks ago and at that time no further medication changes were made. The patient was referred here after attending 3 outpatient programs for substance abuse from [id number] and was sent here to work on the other mental health issues that are contributing to his relapses. He states that he is tolerating the medications well but has noticed that since being on the Wellbutrin and the naltrexone his appetite has decreased and he has lost some weight. His alcohol cravings are greatly decreased and he is less depressed than before also. He remains sober from alcohol and other drugs except possibly marijuana and is currently looking for a job. He has not had any anger outbursts in recent weeks. He denies passive thoughts of , suicidal ideation, plan for suicide, homicidal ideation, hallucinations, delusions or panic attacks. Current Psychiatric Medications: [] Paxil 30 mg p.o. daily (times several years); Wellbutrin XL 150 mg p.o. every morning (x 6 weeks); Lamictal 50 mg p.o. daily (x 2 weeks at this dose); naltrexone 50 mg p.o. daily (x 1 month now). Mental Status Examination: [] The patient is a 28-year-old male who appears normal for stated age and is seen wearing glasses. He has a nose piercing, earrings and a tattoo on his left anterior forearm. He is ambulatory with a normal gait and has no psychomotor agitation or retardation. He is casually dressed and groomed with good hygiene. He is cooperative during the interview. Eye contact is good and speech is normal rate and rhythm and fluent with no pressure. Mood is depressed. Affect is minimally constricted. Thought process is goal-directed and organized. Thought content: Patient is a little stressed by looking for a job. There is no evidence of passive thoughts of , suicidal ideation, homicidal ideation, hallucinations or delusions. Reality testing is intact. Judgment is intact. Insight is limited but improving. Impulsivity is high. Diagnoses: [] 1. Major depressive disorder, recurrent, moderate 2. Generalized anxiety disorder 3. PTSD 4. Strong cluster B traits 5. Alcohol use disorder (sober x 4-1/2 weeks) 6. Marijuana use disorder 7. History of polysubstance use disorder 8. Primary support, work and financial issues Plan: [] The patient will continue the IOP in behavioral health at [facility] as the structure, support, education and group therapy will hopefully prevent worsening of the patient's symptoms. He felt safe during the interview and if it anytime he does not feel safe he agrees to let us know or go to the emergency room. No medication changes were made today except Lamictal will be increased to 100 mg p.o. daily at bedtime. He will continue to follow-up with his outpatient providers and I will see the patient in follow-up while in the IOP. He agrees to stay sober from all alcohol and drug use. Prescription is sent in for Lamictal 100 mg p.o. nightly.
--- NOTE | 2024-04-06 09:00 | BH.SGPN.GN ---
Behaviors/Verbalizations/Mental Status: [] Pt alert and oriented, neatly dressed and groomed. Eye contact good. Motor activity appropriate. Speech within normal limits. Affect congruent, mood euthymic. Thoughts linear, logical, no signs of hallucinations or delusions. Reviewed pt?s symptom tracker, no risk for suicidal ideation, plan, or intent 04/06/24 Client Response/Progress/Benefit: []Pt responded well to session, attentive and engaged. Pt reports feeling a healthy anxiety this morning. Pt shared his wins today include getting a job that pt feels will be a good fit for him and he has a friend who works there too. Pt also has been using a lot of skills outside of IOP tx including self-care like drumming and using opposite action. Pt's stressor today is he only has two weeks left of IOP tx. Pt reminded himself of all the progress he has made. Pt appeared to benefit from reflecting on progress and connecting with peers. Pt will continue IOP tx to increase emotional regulation skills, promote sobriety, and increase work-related functioning. Narrative Note: []
--- NOTE | 2024-04-06 10:15 | BH.SGPN.GN ---
Behaviors/Verbalizations/Mental Status: []Patient was alert and oriented, casually dressed and groomed. Eye contact was good, motor activity normal, speech within normal limits. Affect congruent, mood calm. Thoughts linear, logical, no signs of hallucinations or delusion Client Response/Progress/Benefit: []Pt participated in the group discussions AEB providing input and taking notes. Attentive during psychoeducation Goal Setting. Participated during the discussion on common barriers and pt identified some personal barriers as negative self-talk and giving up when faced with a setback. Group also identified benefits of goals as sense of purpose, improved self-confidence, more motivation for other goals, and improved mental health. Benefited from increased awareness of mental health benefits of goals as well as psychoeducation on SMART goal criteria. Will continue in IOP to improve mood stability, promote behavior activation skills, and prevent decompensation. ? Narrative Note: []
--- NOTE | 2024-04-06 11:15 | BH.SGPN.GN ---
Behaviors/Verbalizations/Mental Status: []Pt alert and oriented, casually dressed and groomed. Eye contact good. Motor activity appropriate. Speech within normal limits. Affect congruent, mood euthymic. Thoughts linear, logical, no signs of hallucinations or delusions. Client Response/Progress/Benefit: [] Pt was engaged during discussion and willing to complete the worksheet challenging them to develop a personal SMART goal. 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 Pt stated procrastination as a potential barrier. Identified solution as setting a reminder on his phone. Benefited from this group by developing a short-term SMART goal related to mental health. Will continue IOP tx to promote use of healthy coping skills, challenge negative thoughts, and prevent decompensation.
--- NOTE | 2024-04-09 09:05 | BH.SGPN.GN ---
Behaviors/Verbalizations/Mental Status: [] Eye contact is good. Motor activity is appropriate. Appearance is casual. Speech is Appropriate. Mood is euthymic. Affect is full. Thoughts are linear and logical. No evidence of psychosis. Reviewed daily check in sheet and no reports of suicidal ideations or intent. Client Response/Progress/Benefit: [] Pt participated at times during the group discussion. Attentive. Daily symptom tracker notes 3/5 for anxiety and 2/5 for irritability. Able to identify mental health wins and healthy habits. According to pt he has re-engaged with sober support group and started a new job. He also reports no nicotine in the past 3 days. He is excited as well as anxious about his new job. Feels more stable and hopeful about the future. Progress noted. Utilizing healthy skills, setting and working towards goals, and finding purpose on daily basis. Benefited from group support, encouragement, and feedback. Will continue in IOP to maintain gains, increase healthy coping skills, and improve functioning. Narrative Note: []
--- NOTE | 2024-04-09 10:15 | BH.SGPN.GN ---
Behaviors/Verbalizations/Mental Status: []Client alert and oriented, casually dressed and groomed. Eye contact good. Motor activity appropriate. Speech within normal limits. Affect congruent, mood euthymic. Thoughts linear, logical, no signs of hallucinations or delusions. Client Response/Progress/Benefit: []Pt was an active participant, AEB taking notes and providing input in group discussions and activities. Attentive during psychoeducation. Pt engaged during interactive discussion in which the group defined self-care and discussed its benefits. Group discussed barriers to engaging in self-care. Group members together came up with guilt, time, urge to put others first, not knowing what to do for self-care, and perception that its unproductive as barriers to engage in self care. Pt stated their personal barrier used to be guilt, but now pt feels he combats this well. Pt participated in small groups where they worked to identified and challenged common self-care ?myths?. Benefited from increased awareness of self-care, its benefits, and the consequences of not utilizing self-care strategies. Will continue IOP tx to promote work-related functioning, increase distress tolerance skills, and combat distortions. Narrative Note: []
--- NOTE | 2024-04-09 11:15 | BH.SGPN.GN ---
Behaviors/Verbalizations/Mental Status: [] Client alert and oriented, casually dressed and groomed. Eye contact good. Motor activity appropriate. Speech within normal limits. Affect congruent, mood content. Thoughts linear, logical, no signs of hallucinations or delusions. Client Response/Progress/Benefit: []Client engaged in discussion reviewing different areas of self-care and completing self-assessment of current self care, as well as providing input throughout discussion. Client completed worksheet identifying current self-care practices and what self-care activities client wants to start using. Client selected social self-care to begin practicing more consistently. Client plans to do this by starting to go to AA meetings on a regular basis. Appeared to benefit from completing the self-care evaluation and gaining insights into current self-care practices, as well as identifying areas in which client would like to improve upon. Client will continue IOP tx to prevent decompensation and maintain mood stability. Narrative Note: []
--- NOTE | 2024-04-11 10:10 | BH.SGPN.GN ---
Behaviors/Verbalizations/Mental Status: []Eye contact is good. Motor activity is appropriate. Appearance is casual. Speech is Appropriate. Mood is anxious and euthymic. Affect is congruent. Thoughts are linear and logical. No evidence of psychosis Client Response/Progress/Benefit: [] Pt was an active participant in group discussion and experiential activity. Attentive during psychoeducation on resilience. Participated during interactive discussion with peers on the definition of resilience. Able to relate experiential activity of group juggle to topics of resilience. Group worked together to identify what can impact one's ability to be resilient which included past experiences, trauma, toxic support system, lack of resources, and current mental/physical health state. Worked well with peers in small group in which they identified factors that contribute to building resilience. Pt?s group worked on the importance of move towards goals. Benefited from increased awareness of resilience and the factors that contribute to building resilience. Will continue in IOP to promote use of healthy coping skills, improve view of self, and prevent decompensation.
--- NOTE | 2024-04-11 11:10 | BH.SGPN.GN ---
Behaviors/Verbalizations/Mental Status: []Pt alert and oriented, casually dressed and groomed. Eye contact good. Motor activity appropriate. Speech within normal limits. Affect congruent, mood content. Thoughts linear, logical, no signs of hallucinations or delusions. Client Response/Progress/Benefit: []Pt responded well to session AEB completing the resilience worksheet provided. Pt participated in the discussion and worked cooperatively with group to identify strategies to enhance each of the components discussed. Pt reports belief they already use resilience traits of??self-awareness and maintaining a hopeful outlook.? Pt stated they would like to continue to develop resilience trait of ?keeping things in perspective? as pt feels pt would benefit from challenging his perspective to help with stress management. Pt seemed to benefit from discussing strategies for improving personal resilience and identifying resilience traits pt already possesses. Will continue IOP tx to promote gains, reinforce healthy coping skills, and further increase mood stability. ? Narrative Note: []
--- NOTE | 2024-04-11 11:15 | BH.MDN_ITS ---
Multi-Disciplinary Note Note 45-min Individual: Time Started:: 09:15 Date: 04/11/24 Purpose of session/treatment goals addressed:: Met with patient to review progress and discuss current symptoms. Reviewed cognitive distortions/mistaken beliefs and skills to challenge/reframe. Eye Contact:: Good Motor Activity:: Appropriate Appearance:: Casual Speech:: Appropriate Mood:: Anxious Affect:: Congruent Thoughts:: Linear, Logical and No evidence of hallucinations/delusions noted Staff Interventions:: discharge planning and other (Reviewed skills to manage cognitive distortions and mistaken beliefs) Client Response:: Pt reports ups and downs. He followed through with behavior activation plan developed last week. He has been getting up in the AM and going outside as well as completing small tasks. This has helped him with energy, motivation, and staying engaging during the day rather than isolating. He has been showering in the AM which he also finds has been helpful. Sadly his grandmother this weekend and this has been a very emotional time for the family. We reviewed past education on cognitive distortions and core beliefs. Also reviewed strategies to challenge and reframe thoughts as well as unrealistic and perfectionistic beliefs. Gave examples of completing artwork and accepting it rather than focusing on making it perfect. Processed and developed strategies to manage anxiety, stress, and expectations related to new job. Risks/Concerns:: No risks or concerns noted. Denies SI, plan, or intent Progress Toward Goals/Plan:: Remains consistent and engaged in [facility] level of care. Medication compliant. Benefited from psychoeducation and support. Pt was able to gain insight from recent decompensation which led to development of new healthy strategies to implement. Remains sober and has returned to AA meetings. Plan is to discharge from [facility] next week. We discussed aftercare plans. He has appointment with rocket engine tester (Yoly Bagley) at [facility] next week. He is also planning on attending [facility] aftercare program. He plans to make an appointment with an outpatient therapist as well. Will continue in [facility] to maintain gains. Time Stopped:: 10:00
== END 2024-04-11 23:59 ==
LOC: BHIOP 07:16
PROVIDERS: PCP Internal Medicine; Referring Provider Psychiatry & Neurology Psychiatry; Visit Provider Psychiatry & Neurology Psychiatry
DX: F33.2 Major depressive disorder, recurrent severe without psychotic features (principal); F41.1 Generalized anxiety disorder; F43.10 Post-traumatic stress disorder, unspecified; F10.91 Alcohol use, unspecified, in remission; F12.90 Cannabis use, unspecified, uncomplicated; Z79.899 Other long term (current) drug therapy
CPT/HCPCS: 99213; H2012; H2020; S9480; T1002; 90834; 90837

== ENCOUNTER 2024-04-12 07:14 | Outpatient (RCR) | payer MEDICAID, SELFPAY ==
[2024-04-12 00:50] VITALS: BP 143/89; PULSE 73
--- NOTE | 2024-04-13 09:30 | BH.MDN ---
Multi-Disciplinary Note Note 30-min Individual: Time Started:: 09:30 Date: 04/13/24 Purpose of session/treatment goals addressed:: Utilized the session to review progress and current symptoms. Addressed treatment plan goals 1 and 2. Eye Contact:: Good Motor Activity:: Appropriate Appearance:: Casual Speech:: Appropriate Mood:: Euthymic Affect:: Full Thoughts:: Linear, Logical and No evidence of hallucinations/delusions noted Staff Interventions:: discharge planning and other (Reviewed treatment plan goals and progress. ) Client Response:: Pt present today in good spirits. Attentive and engaged in session. He started his part-time job since last IOP session and is excited. He discussed feeling more stable since starting IOP and believes that counseling, education, and medications have been beneficial. According to pt prior to IOP his underlying mental health struggles led to alcohol abuse and struggles to maintain consistent sobriety. Briefly discussed how his erratic moods, suicidal thoughts, self-harm, anger outbursts, and racing thoughts were impacting his functioning, relationships, and ability to maintain employment. At this point his believes his mood has been stable for the last couple weeks. No SI or self-harm since starting IOP. Continues to maintain sobriety. Reviewed treatment plan goals and he has completed crisis plan, is aware of how cognitive distortions and mistaken beliefs impact thoughts, can reframe/challenge thoughts, has stabilize sleep and appetite through implementation of healthy routines, and has increase awareness of anxiety triggers, warning signs, and calming skills, Risks/Concerns:: No risks or concerns noted. Denies suicidal thoughts on daily Symptom tracker Progress Toward Goals/Plan:: Progress noted. Consistent and engaged in IOP. Has met treatment plan goals. Medication compliant. Maintain sobriety. Notes improved emotion regulation. Plan is to discharge next week. Will continue in IOP for additional week to maintain gains. Pt returned to work after several months on being unable to function due to mental health. Additional support as he transitions to employment would be beneficial. Aftercare plans include appointment with christian science healer at [facility] next week. He has been in contact with therapist from [facility] to schedule appointment. Plans to start [facility] aftercare on 04/26/24.
--- NOTE | 2024-04-13 10:25 | BH.SGPN.GN ---
Behaviors/Verbalizations/Mental Status: []Pt alert and oriented, casually dressed and groomed. Eye contact good. Motor activity appropriate. Speech within normal limits. Affect congruent, mood content. Thoughts linear, logical, no signs of hallucinations or delusions. Client Response/Progress/Benefit: [] Pt took notes and contributed some throughout group discussion and interactive activity. Attentive during psychoeducation on fixed mindset and how a fixed mindset can impact mental health, resilience, and relationships. Participated during the interactive group discussion on fixed mindset in which group verbalized their current fixed mindsets and how they affect their mental health. Pt shared common fixed mindset thoughts they have which included I won't have the time/money to start a [employer] business?, ?I'm going to relapse again?, and ?I can't handle success?. These thoughts lead to giving up or not trying, low self-esteem, and remaining in unhealthy coping patterns. Pt benefited from increased awareness of growth mindset and fixed thoughts and how fixed thoughts impact their mental health. Will continue IOP tx to prevent decompensation, improve mood stability, and improve self-confidence. Narrative Note: []
--- NOTE | 2024-04-13 11:15 | BH.SGPN.GN ---
Behaviors/Verbalizations/Mental Status: []Pt alert and oriented, casually dressed and groomed. Eye contact good. Motor activity appropriate. Speech within normal limits. Affect congruent, mood content. Thoughts linear, logical, no signs of hallucinations or delusions. Client Response/Progress/Benefit: [] Pt was an active participant during activity and discussion. Pt did well to remain attentive and participate as group worked on identifying characteristics and benefits of adopting a growth mindset. Worked with fellow participants in reframing the example fixed thoughts into growth mindset thoughts. Pt worked on changing own fixed thought and reframed the thought to ?I work hard for my happiness and give myself credit. Pt appeared to benefit from challenging own thoughts and engaging in the activity. Pt will continue IOP tx to promote use of healthy coping skills, challenge distorted/negative thoughts, and prevent decompensation.
--- NOTE | 2024-04-16 09:00 | BH.SGPN.GN ---
Behaviors/Verbalizations/Mental Status: [] Pt alert and oriented, neatly dressed and groomed. Eye contact good. Motor activity appropriate. Speech within normal limits. Affect congruent, mood euthymic. Thoughts linear, logical, no signs of hallucinations or delusions. Reviewed pt?s symptom tracker, no risk for suicidal ideation, plan, or intent 04/16/24 Client Response/Progress/Benefit: []Pt responded well to session, attentive and engaged. Pt reports feeling hopeful this morning as pt has reflected on his time in IOP tx. Pt shared he worked a few shifts and although his job is stressful, pt enjoyed it. Pt also reflected on his response to a recent stressor now compared to what it would be months ago. Pt's grandmother recently and pt shared in the past he would have numbed and drank, but he is now able to feel his feelings and cope. Pt appeared to benefit from peer support and feedback. Pt will continue IOP tx through this week to reinforce healthy coping skills and improve self-compassion. Narrative Note: []
--- NOTE | 2024-04-16 10:10 | BH.SGPN.GN ---
Behaviors/Verbalizations/Mental Status: []Pt alert and oriented, causally dressed and groomed. Eye contact fair. Motor activity appropriate. Speech within normal limits. Affect congruent, mood euthymic. Thoughts linear, logical, no signs of hallucinations or delusions. Client Response/Progress/Benefit: [] Pt was actively engaged, providing input, and taking notes throughout session. Connected with the topic of pitfalls and listened to group discussion on internal and external barriers that prevent from choosing a healthier path to mental wellness. Group worked together to identify examples of personal internal pitfalls. Engaged in activity and worked cooperatively with peers. Shared personal pitfalls to include negative thinking, avoidance, and reverting back to unhealthy coping skills. Pt engaged in learning about the difference between external triggers and self-sabotaging behaviors. Seemed to benefit from increased awareness of personal pitfalls. Pt will continue IOP tx to promote use of healthy coping skills, build confidence, and prevent decompensation.
--- NOTE | 2024-04-16 11:15 | BH.SGPN.GN ---
Behaviors/Verbalizations/Mental Status: []Pt alert and oriented, casually dressed and groomed. Eye contact good. Motor activity appropriate. Speech within normal limits. Affect congruent, mood content. Thoughts linear, logical, no signs of hallucinations or delusions. Client Response/Progress/Benefit: [] Pt receptive of session, engaged throughout AEB actively contributing and listening to discussion, as well as taking notes. Pt participated in the experiential activity and processed with group how their emotions, perspective, and reactions positively and negatively impacted the outcome. Pt identified pitfalls they struggle with and shared wanting to work on pitfall of procrastination by challenging himself to set smaller goals and track progress on those goals, as well as reward himself for his progress along the way. Benefited from identifying personal pitfalls and strategies to overcome these pitfalls. Will continue IOP tx to prevent decompensation, continue to improve daily functioning, and promote mood stability. Narrative Note: []
--- NOTE | 2024-04-18 09:02 | BH.SGPN.GN ---
Behaviors/Verbalizations/Mental Status: [] Client alert and oriented, casual appearance. Eye contact good. Motor activity appropriate. Speech within normal limits. Affect congruent, mood euthymic. Thoughts linear, logical, no signs of hallucinations or delusions. Reviewed client's symptom tracker, no risk for suicidal ideation, plan, or intent. Client Response/Progress/Benefit: [] Client responded well to session AEB listening to others and sharing thoughts/feelings. Client reported mental health positive as starting get into the swing of things at his new job. Client reported additional mental health positive as sticking with his routine/schedule that has helped. Stated having a daily routine helps him getting moving Reported no stressor this morning. Appeared to benefit from support from peers. Will continue IOP tx to increase healthy coping skills, build confidence, and prevent decompensation.
--- NOTE | 2024-04-18 10:10 | BH.SGPN.GN ---
Behaviors/Verbalizations/Mental Status: [] Eye contact is good. Motor activity is appropriate. Appearance is casual. Speech is Appropriate. Mood is euthymic. Affect is congruent. Thoughts are linear and logical. No evidence of psychosis. Client Response/Progress/Benefit: [] Pt was an active participant during group discussions and group activities. This portion of group was very psychoeducation heavy and pt was attentive during psychoeducation. Engaged during activity in which they identified which type of foods (i.e. carbs, sugar, salt, fast food, caffeine, etc) they seek out when sad, tired, angry, stressed, anxious, etc. Pt was able to identify the impact that certain foods have on their mental health through group example which was beneficial. Reported connecting with the impacts alcohol can have on sleep sleep quality. Benefited from increased awareness of the connection between nutrition and mental health. Will continue in IOP to prevent decompensation, maintain mood stability, and promote ongoing coping skill application. Narrative Note: []
--- NOTE | 2024-04-18 11:10 | BH.SGPN.GN ---
Behaviors/Verbalizations/Mental Status: []Pt alert and oriented, casually dressed and groomed. Eye contact good. Motor activity appropriate. Speech within normal limits. Affect congruent, mood euthymic. Thoughts linear, logical, no signs of hallucinations or delusions. Client Response/Progress/Benefit: []Pt was an active participant throughout AEB contributing to group discussion and taking notes. Pt provided input during small group discussion on strategies to combat each factor maintaining adverse nutritional cycles. Worked with group to identify ways to foster more mindful nutritional choices. Each group participant identified one small step they could take today to begin establishing mental wellness promoting nutritional choices. Pt shared plans to?begin eating breakfast before he goes to work to break the cycle of eating unhealthy after work. Appeared to benefit from gaining insight into mental wellness centered nutrition and identifying personal steps pt can take to support own nutritional psychology. Recommended continued IOP tx to promote self-care, improve mood stability, and combat distortions. ? Narrative Note: []
--- NOTE | 2024-04-20 10:10 | BH.SGPN.GN ---
Behaviors/Verbalizations/Mental Status: []Pt alert and oriented, casually dressed and groomed. Eye contact good. Motor activity appropriate. Speech within normal limits. Affect congruent, mood content. Thoughts linear, logical, no signs of hallucinations or delusions. ? Client Response/Progress/Benefit: []Pt responded well to session, attentive and engaged. Pt participated in activity where pts had to guess the celebrity with a known mental health diagnosis and this led to discussion on self-stigma. Group participated in the discussion defining stigma as well as what stigma has kept pt's from doing in their lives. Pt stated mental health stigma has led pt to shut down and hide his true feelings. Pt admits that he assumes others will not understand which then results in feeling unsupported. Pt worked with peers to begin discussion of what reinforces stigma and this was discussed further in the next group. Pt appeared to benefit from learning about the different types of stigma as well as gaining awareness of how stigma as personally impacted pt. Pt will d/c from IOP tx given progress, and continue in individual outpatient tx to maintain mood stability and prevent decompensation. Narrative Note: []
--- NOTE | 2024-04-20 11:10 | BH.SGPN.GN ---
Behaviors/Verbalizations/Mental Status: []Pt alert and oriented, neatly dressed and groomed. Eye contact good. Motor activity appropriate. Speech within normal limits. Affect congruent, mood euthymic. Thoughts linear, logical, no signs of hallucinations or delusions. Client Response/Progress/Benefit: [] Pt engaged participant AEB participating in the activity, providing input during small group discussion, and listening attentively to others. Pt appeared to connect with discussion in the benefits of addressing mental health stigma which included: improved relationships, increased willingness to seek help, increased happiness, and improved confidence. Group brainstormed strategies to combat social and perceived stigma. Pt identified that they can contribute to stigma by ?hiding my true feelings.? Pt shared one thing pt can do to combat stigma is ?allowing myself to express feelings and advocate for myself.? Appeared to benefit from increasing awareness of strategies to combat stigma. Will discharge from IOP tx today as pt has accomplished his tx goals and no longer meets criteria for IOP level of care. Narrative Note: []
--- NOTE | 2024-04-20 11:46 | BH.MDN_ITS ---
Multi-Disciplinary Note Note 30-min Individual: Time Started:: 09:27 Date: 04/20/24 Purpose of session/treatment goals addressed:: To address any current stressors and review progress made in IOP. Eye Contact:: Good Motor Activity:: Appropriate Appearance:: Casual Speech:: Appropriate Mood:: Euthymic Affect:: Full and Congruent Thoughts:: Linear, Logical and No evidence of hallucinations/delusions noted Staff Interventions:: CBT techniques, discharge planning, strengths perspective and reviewed DSM-5 Client Response:: Pt responded well to session, open to meeting with this therapist as his primary IOP therapist is out of office. Pt reported he has overall been doing well the last few weeks and is proud of himself for ?sticking it out? and successfully completing the IOP program. Shared continued progress in openly communicating with his supports and honestly discussing his mental health. Described reduced tension in the house as a result and feeling more connected with his family, noting ?I don?t think they?re scared of me anymore?. Went on to describe feeling his perspective on life has improved and he is more hopeful and optimistic, shared being able to challenge his negative thoughts has been an ongoing struggle but he feels much more confident in his ability to do so. Expressed an increased sense of purpose since securing employment and getting back into his hobbies/interests. 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 Most significantly, pt has maintained sobriety from alcohol since IOP admission. He attributes his ability to make consistent gains to ongoing sobriety and identified this as an important component of his mental health maintenance plan. Went on to discuss feeling sad to leave IOP but ready to do so. Reviewed pt?s DSM-5 scores from admission, review, and discharge. Pt was surprised to see he has made an overall 82% decrease and reports he can see significant changes in himself. Reflected on feeling proud of himself for following through with the entirety of the program and not quitting when faced with setbacks at various points throughout tx. Pt reports that an increase in self-compassion and positive self-talk which have improved his confidence, sense of self-worth, and self-care application. Pt reviewed his aftercare maintenance plan which includes continued coping skill application, outpatient therapy, beginning the aftercare program, and ongoing medication management. Risks/Concerns:: No SI or thoughts of as of this date 04/20/24 Progress Toward Goals/Plan:: Pt has made significant progress while in [facility] AEB self-report of overall improved mood and functioning. Pt's DSM-5 scores have also decreased since admission and pt feels more confident in his ability to manage his symptoms. Pt has ongoing stressors, but pt is much more capable of regulating his emotions and maintaining boundaries with himself in order to manage these stressors. Pt will discharge from [facility] tx and continue with outpatient providers. Pt will also begin the Aftercare program next week. Time Stopped:: 09:52
--- NOTE | 2024-04-20 12:54 | BH.DS ---
Discharge Summary Demographics Date of Admission:: 03/06/24 Discharge Date: 04/20/24 Presenting Problems at Admission:: Patient is a 28-year-old single male with a history of depression, anxiety, PTSD, alcohol use disorder, marijuana use disorder, and polysubstance use disorder history who self-referred to the [facility] behavioral health IOP for worsening symptoms of depression and unmanaged anger responses. Discharge Diagnoses:: 1. Major depressive disorder, recurrent, severe without psychosis 2. Generalized anxiety disorder 3. PTSD 4. Strong cluster B traits 5. Alcohol use disorder, sober currently 6. Marijuana use disorder 7. History of polysubstance use disorder Reason for Discharge:: Completed treatment plan goals. According to outcomes and self-report symptom reduction. No longer meets criteria for IOP level of care. Treatment Progress During Treatment & Response: Pt reports decreased depression and anxiety. Improved energy and motivation. Progress noted in IOP. Pt did well with attending IOP consistently which has resulted in noticeable improvements. Decreased negative thoughts and improved confidence. He reports sobriety from alcohol since beginning the IOP program and has successfully re-entered the workforce. He remains active and is practicing opposite-action as well as behavior activation consistently which were his treatment plan goals. He is able to identify triggers, physiological warning signs, and ways to calm himself and his thoughts without turning to unhealthy coping mechanisms. Utilizing reframing and thought challenging. He relies heavily on healthy distraction, reaching out to supports, thought challenging and mindfulness tools. Issues Still to be Addressed:: maintaining mood stability and ongoing anger management, low self-esteem and confidence, anxiety, and past trauma, as well as maintaining sobriety. Discharge Recommendations/Instructions:: Recommended to follow up with psychiatry and counseling. Appointment set with equity manager at [facility] in May. According to pt he is still working on setting up appointment with Brooke Reed at [facility] but intends to follow-up this afternoon. Pt will begin the Aftercare program next week, 04/26/24 Discharge Handout
== END 2024-04-20 12:04 | disposition home or self-care (01) ==
LOC: BHIOP 07:14
PROVIDERS: PCP Internal Medicine; Referring Provider Psychiatry & Neurology Psychiatry; Visit Provider Psychiatry & Neurology Psychiatry
DX: F33.2 Major depressive disorder, recurrent severe without psychotic features (principal); F41.1 Generalized anxiety disorder; F43.10 Post-traumatic stress disorder, unspecified; F10.91 Alcohol use, unspecified, in remission; F12.90 Cannabis use, unspecified, uncomplicated; Z79.899 Other long term (current) drug therapy
CPT/HCPCS: H2012; H2020; S9480; 90832

== ENCOUNTER 2024-04-26 13:59 | Outpatient (RCR) | payer MEDICAID, SELFPAY ==
--- NOTE | 2024-04-26 16:04 | BH.MTP_ITS ---
Master Treatment Plan Patient Information
--- NOTE | 2024-04-26 16:04 | BH.MTP ---
Master Treatment Plan Patient Information Program Physician:: Dr. Dana Ruiz Primary Therapist:: Flores VANEGAS Psychiatric Diagnoses Psychiatric Diagnoses:: Major depressive disorder, recurrent, severe without psychosis Generalized anxiety disorder; PTSD; Strong cluster B traits ; Alcohol use disorder ; Marijuana use disorder ; History of polysubstance use disorder Diagnosis Code(s):: F 33.2 Estimated LOS Estimated LOS (in weeks):: 8 Problem/Goal #1 Problem/Goal #1 Stated Goal:: client will maintain or see a reduction in symptoms AEB client score on the DSM 5 cross-cutting measure and improve client's daily functioning. Objectives Objective #1: Stated Objective: Client will continue to consistently apply healthy coping skills to maintain progress made in IOP tx. Interventions: Through group therapy, client will review warning signs and triggers as well as healthy coping skills learned in IOP tx to successfully maintain gains while transitioning into outpatient therapy. Discharge Criteria: Client will have accomplished this goal when client's score on the DSM-5 cross-cutting measure has maintained or reduced over a 8 week period. Target Date: 06/21/24 Review Date: 05/24/24 Objective #2: Stated Objective: Client will learn and utilize 2-3 maintenance strategies to prevent decompensation from original IOP DSM-5 scores. Interventions: Through group therapy, client will be provided with education on healthy maintenance behaviors, relapse prevention techniques, and healthy coping strategies. Discharge Criteria: Client will have accomplished this goal when can report using at least 2 maintenance skills to prevent decompensation compared to original IOP DSM-5 scores Target Date: 06/21/24 Review Date: 05/24/24 Status: open
--- NOTE | 2024-04-30 14:00 | BH.SGPN.GN ---
Behaviors/Verbalizations/Mental Status: []Pt alert and oriented, casually dressed and groomed. Eye contact good. Motor activity appropriate. Speech within normal limits. Affect congruent, mood content, positive. Thoughts linear, logical, no signs of hallucinations or delusions. Client Response/Progress/Benefit: []Pt responded well to session AEB sharing and listening attentively to others. Pt has scheduled outpatient mental health appointments for early next month and maintains medication compliance. Pt reports using positive self-talk, opposite action, socializing, and ?delay, distract, decide? technique to help with managing mental health symptoms. Pt participated in group discussion defining affirmations and why they are important. Pt provided insight throughout clinician?s presentation of tips for writing personal affirmations and wrote their own affirmations, including ?I am allowed to have bad days and still be fine?, ?I am enough?, and ?I deserve to love and accept myself?. Pt appeared to benefit from increased knowledge of affirmation writing skills and creating their own affirmation statements to remind themselves of outside tx environment. Will continue aftercare tx to promote consistent mental health maintenance and prevent decompensation. Narrative Note: []
--- NOTE | 2024-05-03 14:00 | BH.SGPN.GN ---
Behaviors/Verbalizations/Mental Status: []Pt alert and oriented, casually dressed and groomed. Eye contact good. Motor activity appropriate. Speech within normal limits. Affect congruent, mood content. Thoughts linear, logical, no signs of hallucinations or delusions. Client Response/Progress/Benefit: []Pt receptive of session, engaged throughout. Pt has been consistent with medications but did not have outpatient appointments this week. Pt reported using coping skills such as: cleaning, playing drums, STOPP, deep breathing, and positive self-talk. Receptive of discussion on ?Chapters of my life? poem. Pt contributed to the discussion of the different chapters one may go through and how they connect with current mental health progress. Pt reflected and identified their current chapter as 3/4 because I have chosen a different path for some things, but there's still old habits I'm working on replacing. Identified that taking more time to engage in self-care and reach out to supports would help with getting to the next chapter. Pt seemed to benefit from support from peers and increasing understanding of ?Chapters of my life?. Will continue IOP aftercare to maintain gains and prevent decompensation. Narrative Note: []
--- NOTE | 2024-05-03 14:00 | BH.SGPN.GN ---
Behaviors/Verbalizations/Mental Status: []Pt alert and oriented, casually dressed and groomed. Eye contact good. Motor activity appropriate. Speech within normal limits. Affect congruent, mood content. Thoughts linear, logical, no signs of hallucinations or delusions. Client Response/Progress/Benefit: []Pt receptive of session, engaged throughout. Pt has been consistent with medications but did not have outpatient appointments this week. Pt reported using coping skills such as: playing the drums, deep breathing, positive self-talk, and cleaning. Receptive of discussion on ?Chapters of my life? poem. Pt contributed to the discussion of the different chapters one may go through and how they connect with current mental health progress. Pt reflected and identified their current chapter as 3/4 because I've chosen a different path for some things, but there's still things I need to work on. Identified that taking more time to engage in self-care and reach out to supports would help with getting to the next chapter. Pt seemed to benefit from support from peers and increasing understanding of ?Chapters of my life?. Will continue IOP aftercare to maintain gains and prevent decompensation. Narrative Note: []
== END 2024-05-12 23:59 ==
LOC: BHOG 13:59
PROVIDERS: PCP Internal Medicine; Referring Provider Psychiatry & Neurology Psychiatry; Visit Provider Psychiatry & Neurology Psychiatry
DX: F33.2 Major depressive disorder, recurrent severe without psychotic features (principal); F43.10 Post-traumatic stress disorder, unspecified; F41.1 Generalized anxiety disorder; F10.90 Alcohol use, unspecified, uncomplicated; F12.90 Cannabis use, unspecified, uncomplicated
CPT/HCPCS: 90853

== ENCOUNTER 2024-05-15 07:12 | Outpatient (RCR) | payer MEDICAID, SELFPAY ==
--- NOTE | 2024-05-31 15:39 | BH.DS ---
Discharge Summary Demographics Date of Admission:: 04/26/24 Discharge Date: 05/31/24 Presenting Problems at Admission:: Pt discharged from [facility] tx and transitioned to [facility] aftercare to maintain gains pt made in IOP and to reinforce healthy coping skills. At admission to [facility] aftercare, pt continued to report symptoms of depression and anxiety, but of reduced intensity. Pt had psychosocial stressors of reentering workforce, maintaining sobriety, and consistently using his skills. Discharge Diagnoses:: 1. Major depressive disorder, recurrent, severe without psychosis F33.2 2. Generalized anxiety disorder 3. PTSD 4. Strong cluster B traits Reason for Discharge:: Client stopped attending Aftercare sessions and would not return phone calls. As a result of not attending Aftercare sessions and not returning phone calls client is being discharged from Aftercare program. Treatment Progress During Treatment & Response: Client was reporting treatment progress with doing well at his new job, getting out of the house, and continuing to report improved daily functioning. When he did attend session he continued to report sobriety from alcohol since beginning the IOP program. He had reported practicing opposite-action as well as behavior activation consistently. Decompensation noted with client no longer communicating with his treatment team. Issues Still to be Addressed:: maintaining mood stability and ongoing anger management, low self-esteem and confidence, anxiety, and past trauma, as well as maintaining sobriety. Discharge Recommendations/Instructions:: Client is established with Nanette Bagley at [facility]. Client still waiting to get connected with Brooke Reed for counseling. Discharge Handout
== END 2024-05-31 14:18 | disposition home or self-care (01) ==
LOC: BHOG 07:12
PROVIDERS: PCP Internal Medicine; Referring Provider Psychiatry & Neurology Psychiatry; Visit Provider Psychiatry & Neurology Psychiatry
DX: F33.2 Major depressive disorder, recurrent severe without psychotic features (principal); F41.1 Generalized anxiety disorder; F43.10 Post-traumatic stress disorder, unspecified; Z79.899 Other long term (current) drug therapy

== ENCOUNTER 2024-06-07 14:54 | Outpatient (RCR) | payer MEDICAID, SELFPAY ==
--- NOTE | 2024-06-07 16:47 | BH.MTP_ITS ---
Master Treatment Plan Patient Information Program Physician:: Dr. Nuno Primary Therapist:: Kristen Bethea [facility] Psychiatric Diagnoses Psychiatric Diagnoses:: 1. Major depressive disorder, recurrent, severe without psychosis F33.2 2. Generalized anxiety disorder 3. PTSD 4. Strong cluster B traits Diagnosis Code(s):: F33.2 Estimated LOS Estimated LOS (in weeks):: 8 Problem/Goal #1 Problem/Goal #1 Stated Goal:: client will maintain or see a reduction in symptoms AEB client score on the DSM 5 cross-cutting measure and improve client's daily functioning. Objectives Objective #1: Stated Objective: Client will continue to consistently apply healthy coping skills to maintain progress made in IOP tx. Interventions: Through group therapy, client will review warning signs and triggers as well as healthy coping skills learned in IOP tx to successfully maintain gains while transitioning into outpatient therapy. Discharge Criteria: Client will have accomplished this goal when client's score on the DSM-5 cross-cutting measure has maintained or reduced over a 8 week period. Target Date: 07/26/24 Review Date: 07/05/24 Objective #2: Stated Objective: Client will learn and utilize 2-3 maintenance strategies to prevent decompensation from original IOP DSM-5 scores. Interventions: : Through group therapy, client will be provided with education on healthy maintenance behaviors, relapse prevention techniques, and healthy coping strategies. Discharge Criteria: Client will have accomplished this goal when can report using at least 2 maintenance skills to prevent decompensation compared to original IOP DSM-5 scores. Target Date: 07/26/24 Review Date: 07/05/24
== END 2024-06-11 23:59 ==
LOC: BHOG 14:54
PROVIDERS: PCP Internal Medicine; Referring Provider Psychiatry & Neurology Psychiatry; Visit Provider Psychiatry & Neurology Psychiatry
DX: F33.2 Major depressive disorder, recurrent severe without psychotic features (principal); F41.1 Generalized anxiety disorder; F43.10 Post-traumatic stress disorder, unspecified
CPT/HCPCS: 90853

== ENCOUNTER 2024-06-12 08:07 | Outpatient (RCR) | payer MEDICAID, SELFPAY ==
--- NOTE | 2024-06-14 14:00 | BH.SGPN.GN ---
Behaviors/Verbalizations/Mental Status: []Pt alert and oriented, casually dressed and groomed. Eye contact good. Motor activity appropriate. Speech within normal limits. Affect congruent, mood euthymic. Thoughts linear, logical, no signs of hallucinations or delusions. Client Response/Progress/Benefit: []Pt receptive of session, engaged throughout. Pt shared they have not met with their outpatient provider since last session as they see them every other week. Pt has been taking medications consistently and reports utilizing healthy coping skills outside of aftercare. These skills included: gratitude reflection, checking in with himself, and maintaining boundaries so he does not overwork. ?Receptive of discussion on sitting with the uncomfortable and emotional urges. Pt contributed to the discussion of distress tolerance and how building distress tolerance can help improve mood stability and resilience. Pt wants to keep building distress tolerance by not fixing things when they are out of place in the home. Pt seemed to benefit from support from peers and increasing understanding of distress tolerance. Will continue aftercare to reinforce healthy coping skills and improve daily functioning. Narrative Note: []
--- NOTE | 2024-06-21 14:00 | BH.SGPN.GN ---
Behaviors/Verbalizations/Mental Status: [] Client alert and oriented, casually dressed and groomed. Eye contact good. Motor activity appropriate. Speech within normal limits. Affect congruent, mood euthymic. Thoughts linear, logical, no signs of hallucinations or delusions. Client Response/Progress/Benefit: []Pt responded well to session AEB sharing and listening attentively to others. Pt did not have any mental health appointments this week, but pt is taking medications regularly. Pt stated self-care, thought blocking, and mindfulness skills as pt?s primary coping skills this week. Pt is stressed about his job as pt reports they are consistently understaffed. Pt participated in group discussion defining vulnerability, how and why we avoid it, and the benefits. Pt was an active participant and provided personal examples of being vulnerable and the positive things that came with this. Pt stated that he would like to practice vulnerability this week by allowing himself to explore dating again after ?being out of the dating game for like 10 years.? Will continue aftercare treatment to reinforce healthy coping skills and promote gains. Narrative Note: []
--- NOTE | 2024-07-05 15:50 | BH.TPR ---
Treatment Plan Review Demographics Date of Admission:: 06/07/24 Date of Treatment Plan Review:: 06/28/24 Admitting Diagnoses:: 1. Major depressive disorder, recurrent, severe without psychosis F33.2 2. Generalized anxiety disorder 3. PTSD 4. Strong cluster B traits Current Diagnoses:: 1. Major depressive disorder, recurrent, severe without psychosis F33.2 2. Generalized anxiety disorder 3. PTSD 4. Strong cluster B traits Patient Status Patient's Response to Treatment:: Pt responding well to treatment AEB consistently attending sessions, engaging in sessions, and applying skills outside treatment environment. Status of Current Problems and Symptoms: Client reporting continuing to use healthy skills like self-care, thought blocking, and mindfulness skills. client has reported some increased stress at work due to be understaffed. Client reported he has been doing better with setting boundaries with his work so he doesn't fall back into throwing himself into work and not taking care of himself. Client continuing to work use of opposite action. Progress Problem #1: Problem Name:: Pt will maintain or see a reduction in sx. Status of Goals:: obj 1 - progress noted, ongoing work encouraged. DSM 5 cross-cutting data did not get collected to compare to [facility] admission scores. However, per client report he has decreased depression, managing his anxiety more effectively, maintaining sobriety, and maintaining his new job despite identifying stressors at work. Obj 2 - met, ongoing work encouraged. Client reports use of boundaries, grounding tools, breathing, challenging negative thoughts, and mindfulness as healthy coping skills to help him maintain progress. Team Recommendations:: Team recommends client continue current goal and objectives to decrease depression and increase consistent use of healthy coping skills.
== END 2024-07-12 23:59 ==
LOC: BHOG 08:07
PROVIDERS: PCP Internal Medicine; Referring Provider Psychiatry & Neurology Psychiatry; Visit Provider Psychiatry & Neurology Psychiatry
DX: F33.2 Major depressive disorder, recurrent severe without psychotic features (principal); F41.1 Generalized anxiety disorder; F43.10 Post-traumatic stress disorder, unspecified
CPT/HCPCS: 90853

== ENCOUNTER 2024-10-29 06:24 | Emergency (ER) | payer MEDICAID, SELFPAY ==
[2024-10-29 06:26] VITALS: BP 144/78; PULSE 94; RESP 18; TEMP 36.5; O2SAT 100; BMI 22.4
--- NOTE | 2024-10-29 06:39 | EDS_ITS ---
HPI History of Present Illness Chief Complaint: Flank Pain Detail of Chief Complaint: Left flank pain Informant: patient Narrative Narrative: Patient presents with left leg pain that started about an hour ago. Describes severe pain 9 out of 10 in the left lower abdomen radiating to his back. He has history of kidney stones and thinks he is passing a kidney stones. Denies vomiting although has had some nausea. Denies hematuria. Denies frequency or urgency. [facility] Medical History (Updated 10/29/24 @ 06:[address] Mat Gilliland, DO) Alcohol dependence Wrist fracture, right Cannabis use disorder Alcohol use disorder PTSD (post-traumatic stress disorder) Generalized anxiety disorder Major depressive disorder, recurrent severe without psychotic features Substance abuse Alcohol abuse Anxiety Depression Home Medications ?Medication ?Instructions ?Recorded ?Last Taken ?Type multivitamin with minerals-folic 1 tab PO DAILY HEALTH MAINTENANCE 09/19/23 Unknown History acid 120 mcg chewable tablet (Adult Multivitamin Gummies) bupropion HCl 150 mg 24 hr tablet, 150 mg PO DAILY #90 tabs 06/12/24 Unknown Rx extended release (Wellbutrin XL) paroxetine HCl 30 mg tablet 30 mg PO DAILY DEPRESSION #90 tabs 06/12/24 Unknown Rx lamotrigine 100 mg tablet 100 mg PO DAILY 30 days #30 tabs 07/05/24 Unknown Rx (Lamictal) naltrexone 50 mg tablet 50 mg PO DAILY 30 days #30 t abs 07/05/24 Unknown Rx Allergy/AdvReac Type Severity Reaction Status Date / Time hazelnut Allergy Mild Itching Verified 10/29/24 06:29 Family History (Updated 06/12/24 @ 09:38 by Hattie Cantu) Grandfather Diabetes Mother Depression Grandfather Drug addiction Surgical History (Updated 06/12/24 @ 09:36 by Hattie Cantu) History of surgery on right wrist History of wisdom tooth extraction Social History (Updated 06/12/24 @ 09:39 by Hattie Cantu) Smoking Status: Former smoker Electronic Cigarette Use: with nicotine alcohol intake: never substance use type: marijuana ROS ROS ED Review of Systems ROS Unobtainable: other Constitutional Constitutional ED: Reports lethargy; Denies chills, fever(s), sweats or weight loss Eyes Eyes: Denies blurry vision, change in vision or diplopia ENT ENT ED: Denies rhinorrhea or sore throat Cardiovascular Cardiovascular: Denies chest pain, orthopnea or racing heartbeat Respiratory/Chest Respiratory/Chest: Denies cough, dyspnea, dyspnea on exertion, orthopnea or sputum Gastrointestinal Gastrointestinal: Reports abdominal pain and nausea; Denies diarrhea or vomiting Genitourinary Genitourinary ED: Denies dysuria, hematuria or urinary frequency Musculoskeletal Musculoskeletal: Denies arthralgias, back pain, myalgias or neck pain Integumentary Denies abscess, Abrasions or rash Neurologic Neurologic: Denies headache(s) or weakness Psychiatric Psychiatric: Denies anxiety, depression or suicidal thoughts Endocrine Endocrinology: Denies polydipsia, polyphagia or polyuria Hematologic/Lymphatic Hematologic/Lymphatic: Denies easy bleeding, easy bruising or lymphadenopathy Allergic/Immunologic Allergic/Immunologic ED: Denies mouth swelling, tongue swelling or urticaria EXAM Physical Exam Const Vital Signs: 10/29/24 06:26 Temperature 97.7 F L Temperature Source Oral Pulse Rate 94 Respiratory Rate 18 Blood Pressure 144/78 H Blood Pressure Mean 100 Pulse Ox 100 Oxygen Delivery Method Room Air Positive well nourished and well developed General Appearance ED: well developed and NAD HEENT Reports TM's clear and moist mucous membranes normocephalic and atraumatic; Negative for trauma or tenderness Tympanic Membrane ED: Yes TM's clear Eyes PERRL and EOMs intact bilaterally General Eye ED: Negative for pale conjunctiva or scleral icterus Neck no lymphadenopathy, supple and no JVD General: Negative for tenderness Chest Wall inspection of chest normal and palpation of chest normal Chest: Negative for tenderness Resp normal respiratory effort and clear to auscultation bilaterally Effort and Inspection: Negative for respiratory distress or pain with movement Auscultation: Negative for rhonchi, wheezes or diminished lung sounds Cardio regular rate, regular rhythm, S1 normal heart sound, S2 normal heart sound and no murmurs Peripheral Pulses: pulses 2+ throughout GI normal to inspection, nondistended, normoactive bowel sounds, soft to palpation, non-distended and no masses GI Narrative: Tenderness palpation over left lower quadrant and suprapubic region. There is no rebound, rigidity, or pineal signs. Positive CVA tenderness on the left. Back/Spine no thoracic nor lumbar tenderness Extremity normal to inspection General Extremety ED: Negative for edema General Extremity: Negative for edema Neuro oriented x3, CN's II-XII intact bilaterally, no sensory deficits noted and gait normal Sensorium / Orientation: awake, alert, oriented to person, oriented to place and oriented to time Motor Exam: strength 5/5 throughout and strength abnormal Psych mental status grossly normal Skin no rashes or lesions noted and no wounds MDM MDM MDM Narrative Medical decision making narrative: Patient presents with history of kidney stones and now 1 hours worth of left flank pain. Complains of nausea. Clinically looks well. IV line established. He will be medicated with Toradol as well as Zofran and Dilaudid. Will obtain labs as well as urinalysis and a CT scan of the abdomen pelvis. Care of patient turned over to morning physician and awaiting lab results, CT results and final disposition Lab Data Attestation: I reviewed the patient's lab results. Labs: Laboratory Results - last 24 hr 10/29/24 06:35 WBC 6.3 RBC 4.49 L Hgb 13.5 Hct 38.5 L MCV 85.7 MCH 30.1 MCHC 35.1 RDW Std Deviation 38.6 RDW Coeff of Barbara 12.3 Plt Count 400 MPV 9.3 Immature Gran % (Auto) 0.200 Neut % (Auto) 39.0 L Lymph % (Auto) 45.0 H Nolan % (Auto) 9.5 Eos % (Auto) 5.2 H Baso % (Auto) 1.1 H Absolute Neuts (auto) 2.5 Absolute Lymphs (auto) 2.85 Nucleated RBC % 0 Discharge Plan Triage Chief Complaint: Flank Pain ED Provider: Mat Gilliland Dx/Rx/DC Orders Clinical Impression: Acute flank pain Prescriptions: No Action bupropion HCl [Wellbutrin XL] 150 mg tablet extended release 24 hr 150 mg PO DAILY Qty: 90 1RF paroxetine HCl 30 mg tablet 30 mg PO DAILY Qty: 90 1RF multivit with min-folic acid [Adult Multivitamin Gummies] 120 mcg tablet,chewable 1 tab PO DAILY naltrexone 50 mg tablet 50 mg PO DAILY 30 Days Qty: 30 2RF lamotrigine [Lamictal] 100 mg tablet 100 mg PO DAILY 30 Days Qty: 30 1RF Primary Care Provider: Michelle Carias Referrals: Michelle Carias MD [Primary Care Provider] - Print Language: Tunisian
--- NOTE | 2024-10-29 06:39 | CT_ITS ---
PROCEDURE: ABDOMEN/PELVIS WITHOUT CONT REASON FOR EXAM: Left flank pain TECHNIQUE: Abdomen and pelvis CT without intravenous contrast. COMPARISON: None. FINDINGS: Noncontrast technique limits evaluation of the abdominal and pelvic viscera. Lung bases: Clear Liver: Unremarkable. Gallbladder: Unremarkable. Spleen: Unremarkable. Pancreas: Unremarkable. Adrenals: Unremarkable. Kidneys: Mild left hydronephrosis and hydroureter with 2 mm obstructive calculus at the UVJ. Bladder: Unremarkable. Reproductive Organs: Unremarkable. Bowel: Unremarkable. Appendix: Normal. Lymph nodes: No suspicious lymph node enlargement. Vasculature: Major vascular structures are unremarkable. Peritoneum / Retroperitoneum: No ascites. No free air. Bones: Unremarkable. CT/Abdomen/Pelvis without Cont IMPRESSION: Mild left hydronephrosis obstructive 2 mm obstructive calculus at the UVJ. One or more dose reduction techniques were used (e.g., Automated exposure contr ol, adjustment of the mA and/or kV according to patient size, use of iterative reconstruction technique). Reading Location: [facility]
[2024-10-29 06:51] LABS: Absolute Lymphocyte Count 2.85 X10^3/uL (0.83-4.51); Absolute Neutrophil Count 2.5 X10^3/uL (2.0-7.7); Basophil# 0.07 X10^3/uL; Basophil% 1.1 % (0-1); Eosinophil# 0.33 X10^3/uL; Eosinophils% 5.2 % (0-5); Hematocrit 38.5 % (40-54); Hemoglobin 13.5 g/dL (13.0-16.5); Lymphocyte # 2.85 X10^3/ul (0.83-4.51); Mean Corp Hgb Conc 35.1 g/dL (32-36); Mean Corpuscular Hgb 30.1 pg (27.0-32.0); Mean Corpuscular Volume 85.7 fL (80-94); Mean Platelet Vol. 9.3 fl (6.2-12.0); Monocyte% 9.5 % (0-10); NRBC Flagged by Analyzer 0 % (0-5); Neutrophil # 2.47 X10^3/uL (2.7-7.7); Platelet Count 400 K/mm3 (150-450); RBC Distribution Width CV 12.3 % (11.6-14.6); RBC Distribution Width SD 38.6 fl (35.1-43.9); Red Blood Count 4.49 M/mm3 (4.6-6.2); White Blood Count 6.3 K/mm3 (4.4-11.0)
[2024-10-29] MEDS: 0.9% Normal Saline (1000mL) 1,000 ML 1000 ML IV (06:55)
[2024-10-29] MEDS: Ondansetron 4 MG/2 ML Vial IV (06:55)
[2024-10-29] MEDS: Ketorolac 30 MG/ML Syringe IV (06:56)
[2024-10-29] MEDS: HYDROmorphone 1 MG/ML Syringe IV (06:57)
[2024-10-29 07:07] LABS: Mucous, Urine 0 SEEN /hpf (<or=2+)
[2024-10-29 07:08] LABS: Anion Gap 10 (5-15); BUN 16 mg/dL (7-18); BUN/Creat Ratio 17.4 RATIO (10-20); Calcium,Total 9.5 mg/dL (8.5-10.1); Chloride 105 mmol/L (98-107); Creatinine, Serum 0.92 mg/dL (0.70-1.30); EST Glomerular Filtration Rate 103 mL/min (>60); Est Glom Filt Rate - Afr Amer 124 mL/min (>60); Estimated Creatinine Clearance 114.25 ml/min; Glucose 151 mg/dL (74-106); Potassium 3.3 mmol/L (3.5-5.1); Sodium Level 139 mmol/L (136-145)
[2024-10-29 07:15] LABS: Color, Urine Yellow (Yellow); Glucose, Dipstick Normal (Normal); Ketone-Dipstick Negative (Negative); Leukocyte Esterase-Dipstick 25 /ul (Negative); Nitrite-Dipstick Negative (Negative); Occult Blood-Urine 250 /ul (Negative); Protein-Dipstick 15 mg/dl (Negative); Urine Bilirubin Dipstick Negative (Negative); Urine Clarity Cloudy (Clear); Urine Urobilinogen Normal (Normal)
[2024-10-29 07:30] LABS: Red Blood Cells-Urine 50-100 SEEN /hpf (0-5)
[2024-10-29 07:31] LABS: Amorphous Sediment 4+; Bacteria 3+ /hpf (None Seen); Squamous Epithelial Cells - UA 0-5 SEEN /hpf (0-5); White Blood Cells 0-5 SEEN /hpf (0-5)
[2024-10-29 08:09] VITALS: BP 116/67; PULSE 77; RESP 18; TEMP 36.8; O2SAT 99
[2024-10-29] MEDS: Potassium Chloride Oral Soln 20 MEQ/15 ML UDC 40 MEQ PO (08:12)
== END 2024-10-29 08:21 | disposition home or self-care (01) ==
PROVIDERS: Emergency Provider Emergency Medicine; PCP Internal Medicine; Visit Provider Emergency Medicine
DX: N13.2 Hydronephrosis with renal and ureteral calculous obstruction (principal); F33.2 Major depressive disorder, recurrent severe without psychotic features; F43.10 Post-traumatic stress disorder, unspecified; F41.1 Generalized anxiety disorder; Z87.898 Personal history of other specified conditions; Z79.899 Other long term (current) drug therapy; Z87.891 Personal history of nicotine dependence; Z87.442 Personal history of urinary calculi
CPT/HCPCS: 74176; 80048; 81001; 85025; 87086; 96361; 96374; 96375; 99283; J2405

== ENCOUNTER 2024-11-07 08:54 | Emergency (ER) | payer MEDICAID, SELFPAY ==
[2024-11-07 08:55] VITALS: BP 127/81; PULSE 70; RESP 18; TEMP 37.1; O2SAT 100
--- NOTE | 2024-11-07 09:11 | US_ITS ---
PROCEDURE: KIDNEY AND BLADDER REASON FOR EXAM: Left flank pain. TECHNIQUE: Bilateral renal ultrasound. COMPARISON: Comparison is made with prior CT scan of the abdomen and pelvis dated October 27 2024. FINDINGS: Normal renal sizes, parenchymal thicknesses, and echotextures. Mild left hydronephrosis. There is a 3 mm x 4 mm x 3 mm calculus in the left ureter. No cysts or large solid renal masses. RIGHT Kidney Size: 10.9 cm x 5.5 cm x 5.8 cm Volume: 179 mL Cortical Thickness (if discernible): 1.6 (>6mm is normal) LEFT Kidney Size: 11.1 cm x 5.9 cm x 6.2 cm Volume: 212 mL Cortical Thickness (if discernible): 2.0 (>6mm is normal) US/Kidney and Bladder IMPRESSION: Mild degree of left hydronephrosis due to a 3 mm x 4 mm x 3 mm calculus in the left ureter. Reading Location: [id number]
--- NOTE | 2024-11-07 09:12 | EX.ED.DYSGE1 ---
HPI History of Present Illness Chief Complaint: Flank Pain Narrative Narrative: Patient is a 29-year-old male with past medical history of kidney stone, anxiety, depression, alcohol abuse, substance abuse who presented to the emergency department with a chief complaint of left flank pain. Patient states that this morning while at work he developed left-sided flank pain and states that this feels very similar to his recent kidney stone. He states that he believes he passed the previous kidney stone. Patient denies other complaints denies any trauma. States that he is urinating normally for himself denies any blood in his urine or painful urination. [facility] Medical History Alcohol dependence Wrist fracture, right Cannabis use disorder Alcohol use disorder PTSD (post-traumatic stress disorder) Generalized anxiety disorder Major depressive disorder, recurrent severe without psychotic features Substance abuse Alcohol abuse Anxiety Depression Home Medications ?Medication ?Instructions ?Recorded ?Last Taken ?Type multivitamin with minerals-folic 1 tab PO DAILY HEALTH MAINTENANCE 09/19/23 Unknown History acid 120 mcg chewable tablet (Adult Multivitamin Gummies) bupropion HCl 150 mg 24 hr tablet, 150 mg PO DAILY #90 tabs 06/12/24 Unknown Rx extended release (Wellbutrin XL) paroxetine HCl 30 mg tablet 30 mg PO DAILY DEPRESSION #90 tabs 06/12/24 Unknown Rx lamotrigine 100 mg tablet 100 mg PO DAILY 30 days #30 tabs 07/05/24 Unknown Rx (Lamictal) naltrexone 50 mg tablet 50 mg PO DAILY 30 days #30 tabs 07/05/24 Unknown Rx cephalexin 500 mg capsule 500 mg PO BID 5 days #10 caps 10/29/24 Unknown Rx ondansetron 4 mg disintegrating 4 mg PO Q6H PRN nausea and 10/29/24 Unknown Rx tablet vomiting #20 tabs oxycodone-acetaminophen 5 mg-325 1 tab PO Q6H PRN pain 3 days #12 10/29/24 Unknown Rx mg tablet (Endocet) tabs tamsulosin 0.4 mg capsule (Flomax) 0.4 mg PO DAILY #14 caps 10/29/24 Unknown Rx ketorolac 10 mg tablet 10 mg PO Q6H PRN pain #20 tabs 11/07/24 Unknown Rx ondansetron 4 mg disintegrating 4 mg PO Q6H PRN nausea and 11/07/24 Unknown Rx tablet vomiting #20 tabs tamsulosin 0.4 mg capsule (Flomax) 0.4 mg PO DAILY 10 days #10 caps 11/07/24 Unknown Rx Allergy/AdvReac Type Severity Reaction Status Date / Time hazelnut Allergy Mild Itching Verified 11/07/24 08:55 Family History Grandfather Diabetes Mother Depression Grandfather Drug addiction Surgical History History of surgery on right wrist History of wisdom tooth extraction Social History Smoking Status: Former smoker Electronic Cigarette Use: with nicotine alcohol intake: never substance use type: marijuana ROS ROS ED ROS Narrative Constitutional: Denies fever, chills, headache, lightness, dizziness Eyes: Denies change in vision double vision blurry vision Cardiovascular: Denies chest pain or palpitations Respiratory: Denies coughing Abdomen: Denies abdominal pain nausea vomit diarrhea : Denies any urinary symptoms Neurological: Denies numbness, weakness, tingling Musculoskeletal: Complains of flank pain as noted above Skin: Denies rashes or lesions EXAM Physical Exam Narrative Exam Narrative: General: Patient was lying in bed rest comfortably did not appear to be in acute distress Head: Atraumatic, normocephalic Eyes: PERRL bilaterally, EOMI bilateral, no conjunctival injection noted Neck: Soft, supple, trachea midline Cardiovascular: Regular rate and rhythm no murmurs gallops rubs are noted Respiratory: Clear to auscultation bilaterally Abdomen: Soft, nondistended, nontender to palpation Musculoskeletal: No CVA tenderness noted on exam, nontender to palpation the midline of the thoracic lumbar spine Extremities: +5/5 strength noted in the bilateral upper and lower extremities, radial pulses +2/4 in the bilateral extremities Neurological: Patient following commands knew that he was at [facility] year is 2024 Skin: Warm, dry, intact no rashes or lesions noted Const Vital Signs: 11/07/24 08:55 11/07/24 10:55 11/07/24 12:00 Temperature 98.7 F 98.7 F Temperature Source Oral Oral Pulse Rate 70 64 78 Respiratory Rate 18 16 14 Blood Pressure 127/81 H 134/78 H Blood Pressure Mean 96 96 Pulse Ox 100 98 99 Oxygen Delivery Method Room Air Room Air Room Air MDM MDM MDM Narrative Medical decision making narrative: Patient is a 29-year-old male who presented to the emergency department with chief complaint of left-sided flank pain. On the differential diagnosis includes but not limited to urolithiasis, UTI, pyelonephritis. Once workup is obtained reviewed he will be reevaluated. Patient be given Toradol. Patient's urinalysis reviewed showed no evidence of infection negative nitrites negative leukocyte esterase, 50 occult blood. No white cells no bacteria noted. Patient's renal ultrasound was reviewed and showed mild degree of left hydronephrosis due to a 3 x 4 x 3 calculus in the left ureter. On reevaluation patient is feeling better he would like to go home at this point time. Patient will be given prescriptions for Flomax, Toradol and was also advised to use Tylenol for pain control. He is encouraged to increase his fluid intake and follow-up with urology that he was referred to at his last visit which she will be referred again. He is encouraged to return with worsening symptoms or concerns. All question concerns answered he is discharged home in stable condition. Patient is requesting work note which was provided. Lab Data Labs: Laboratory Results - last 24 hr 11/07/24 09:30 Urine Color Straw Urine Clarity Clear Urine pH 7.0 Ur Specific Eckert 1.005 Urine Protein Negative Urine Glucose (UA) Normal Urine Ketones Negative Urine Occult Blood 50 H Urine Nitrite Negative Urine Bilirubin Negative Urine Urobilinogen Normal Ur Leukocyte Esterase Negative Urine WBC 0 SEEN Ur Squamous Epith Cells 0 SEEN Urine Bacteria 0 SEEN Urine Mucus 0 SEEN Radiography Diagnostic Testing: Clinical Impression(s) from Imaging Studies Renal Ultrasound 11/07/24 09:11 IMPRESSION: Mild degree of left hydronephrosis due to a 3 mm x 4 mm x 3 mm calculus in the left ureter. Reading Location: [id number] Discharge Plan Triage Chief Complaint: Flank Pain ED Provider: Corby Mari Dx/Rx/DC Orders Clinical Impression: Urolithiasis Prescriptions: New ketorolac 10 mg tablet 10 mg PO Q6H PRN (Reason: pain) Qty: 20 0RF Rx Instructions: maximum total duration of 5 days from all oral, intranasal, or parenteral formulations tamsulosin [Flomax] 0.4 mg capsule 0.4 mg PO DAILY 10 Days Qty: 10 0RF ondansetron 4 mg tablet,disintegrating 4 mg PO Q6H PRN (Reason: nausea and vomiting) Qty: 20 0RF No Action bupropion HCl [Wellbutrin XL] 150 mg tablet extended release 24 hr 150 mg PO DAILY Qty: 90 1RF paroxetine HCl 30 mg tablet 30 mg PO DAILY Qty: 90 1RF multivit with min-folic acid [Adult Multivitamin Gummies] 120 mcg tablet,chewable 1 tab PO DAILY cephalexin 500 mg capsule 500 mg PO BID 5 Days Qty: 10 0RF oxycodone-acetaminophen [Endocet] 5-325 mg tablet 1 tab PO Q6H PRN (Reason: pain) 3 Days Qty: 12 0RF ondansetron 4 mg tablet,disintegrating 4 mg PO Q6H PRN (Reason: nausea and vomiting) Qty: 20 0RF tamsulosin [Flomax] 0.4 mg capsule 0.4 mg PO DAILY Qty: 14 0RF naltrexone 50 mg tablet 50 mg PO DAILY 30 Days Qty: 30 2RF lamotrigine [Lamictal] 100 mg tablet 100 mg PO DAILY 30 Days Qty: 30 1RF Stand Alone Forms: ED Work / School Excuse Primary Care Provider: Michelle Carias Referrals: Michelle Carias MD [Primary Care Provider] - Angel Luis Marrero MD [Med Staff - Active Staff] - Activity Restrictions/Additional Instructions: Follow-up with urology in outpatient setting. Take prescriptions as prescribed rotate Tylenol and the Toradol [id number] do not take another NSAID with the Toradol it is the same drug. Your ultrasound did show a kidney stone on the left side. Return with worsening symptoms or concerns. Follow-up your primary care physician as well Print Language: Liberian Disposition Disposition: Home, Self Care
[2024-11-07] MEDS: Ketorolac 15 MG/ML Vial IV (09:28)
[2024-11-07 09:43] LABS: Bacteria 0 SEEN /hpf (None Seen); Mucous, Urine 0 SEEN /hpf (<or=2+); Squamous Epithelial Cells - UA 0 SEEN /hpf (0-5); White Blood Cells 0 SEEN /hpf (0-5)
[2024-11-07 09:55] LABS: Color, Urine Straw (Yellow); Glucose, Dipstick Normal (Normal); Ketone-Dipstick Negative (Negative); Leukocyte Esterase-Dipstick Negative /ul (Negative); Nitrite-Dipstick Negative (Negative); Occult Blood-Urine 50 /ul (Negative); Protein-Dipstick Negative (Negative); Specific Gravity, Urine 1.005 (1.002-1.030); Urine Bilirubin Dipstick Negative (Negative); Urine Clarity Clear (Clear); Urine Urobilinogen Normal (Normal)
[2024-11-07 10:55] VITALS: BP 134/78; PULSE 64; RESP 16; TEMP 37.1; O2SAT 98
[2024-11-07 12:00] VITALS: PULSE 78; RESP 14; O2SAT 99
[2024-11-07 14:16] LABS: Red Blood Cells-Urine 0 SEEN /hpf (0-5)
== END 2024-11-07 13:02 | disposition home or self-care (01) ==
PROVIDERS: Emergency Provider Emergency Medicine; PCP Internal Medicine; Visit Provider Emergency Medicine
DX: N13.2 Hydronephrosis with renal and ureteral calculous obstruction (principal); F33.2 Major depressive disorder, recurrent severe without psychotic features; F41.9 Anxiety disorder, unspecified; F43.10 Post-traumatic stress disorder, unspecified; Z87.442 Personal history of urinary calculi; Z79.899 Other long term (current) drug therapy; Z87.891 Personal history of nicotine dependence; Z87.898 Personal history of other specified conditions
CPT/HCPCS: 76770; 81001; 96374; 99282; A4216